=== PATIENT | female | born 1960 | race Caucasian/White ===

== ENCOUNTER → 2016-12-04 10:08 | Outpatient (CLI) | payer MEDICAID ==
[~2016-12-04 10:08] MED LIST: ASPIRIN325 MG PO; ASPIRIN81 MG PO; ATIVAN0.5 MG PO; BAYER CHEWABLE81 MG PO; CELEXA40 MG PO; EFFIENT10 MG; EFFIENT10 MG PO; FAMVIR500 MG PO; HYDROCHLOROTH12.5 M1 PO; HYDROCHLOROTHIA25 MG PO; LISINOPRIL5 MG GT; LISINOPRIL5 MG PO; MINERAL OIL25 ML PO; NEXIUM40 MG PO; NITROQUICK0.4 MG SL; PLAVIX75 MG PO; PRAVACHOL20 MG PO; PRINIVIL20 MG PO; PROZAC20 MG PO; TEGRETOL 100 M100 MG PO; ZOFRAN ODT4 MG/UDTAB PO
== END | disposition home or self-care (01) ==
LOC: D.US 10:08
DX: I70.219 Atherosclerosis of native arteries of extremities with intermittent claudication, unspecified extremity (principal); I25.10 Atherosclerotic heart disease of native coronary artery without angina pectoris

== ENCOUNTER → 2017-01-10 12:45 | Outpatient (CLI) | payer MEDICAID | END | disposition home or self-care (01) | LOC: D.MRI 12:45 | DX: G51.3 Clonic hemifacial spasm (principal) ==

== ENCOUNTER 2017-04-02 17:55 | Emergency (ER) | payer MEDICAID | END 2017-04-02 20:45 | disposition home or self-care (01) | LOC: D.ER 17:55 | DX: M54.16 Radiculopathy, lumbar region (principal); V43.52XA Car driver injured in collision with other type car in traffic accident, initial encounter; Y93.89 Activity, other specified; Y92.410 Unspecified street and highway as the place of occurrence of the external cause; F17.200 Nicotine dependence, unspecified, uncomplicated ==

== ENCOUNTER 2017-09-03 02:33 | Emergency (ER) | payer MEDICAID | END 2017-09-03 03:52 | disposition home or self-care (01) | LOC: D.ER 02:33 | DX: T78.40XA Allergy, unspecified, initial encounter (principal); X58.XXXA Exposure to other specified factors, initial encounter; F17.200 Nicotine dependence, unspecified, uncomplicated ==

== ENCOUNTER → 2017-10-22 12:00 | Outpatient (CLI) | payer MEDICAID | LOC: D.MAMMO 12:00 | DX: N60.02 Solitary cyst of left breast (principal) ==

== ENCOUNTER → 2017-12-31 21:09 | Outpatient (CLI) | payer MEDICAID | END | disposition home or self-care (01) | LOC: D.MAMMO 12-10 14:30 | DX: R92.8 Other abnormal and inconclusive findings on diagnostic imaging of breast (principal) ==

== ENCOUNTER → 2018-04-28 07:15 | Outpatient (CLI) | payer MEDICAID ==
--- NOTE | ~2018-04-28 | ST ---
PATIENT:SAHARA KRAMER MEDICAL RECORD: [id number] SEX: F LOCATION:[facility] ORDER #: ADMISSION DATE: 04/28/18 AGE OF PATIENT: 57 REFERRING PHYSICIAN: INTERPRETING PHYSICIAN: LAMAR NOEL MD DATE OF SERVICE: 04/28/2018 PROCEDURE: Nuclear stress test. INDICATION: Chest pain of unknown etiology. She was exercised on standard Lexiscan protocol with 32.3 mCi sestamibi injected at peak stress, 11.5 mCi injected for rest images previously. FINDINGS: Gated SPECT reveals preserved ejection fraction greater than 60% with good wall motion and thickening and brightening throughout all segments. SPECT imaging: Sestamibi was used as myocardial perfusion agent. There was reversibility anteriorly, this includes the basal, mid apical anterior. The degree of reversibility is mild. The amount of myocardial involved is mild to moderate. OVERALL IMPRESSION: 1. This is an abnormal nuclear stress test with reversible ischemia anteriorly. 2. Gated SPECT reveals a preserved ejection fraction greater than 60%. In this patient with ongoing symptomatology, the current scan does suggest presence of hemodynamically significant coronary artery disease. We will proceed with coronary angiography to followup study. TRANSINT:[id number] Voice Confirmation ID: [id number] DOCUMENT ID: [id number] LAMAR NOEL MD at 1713 CC: [id number] DICTATION DATE: 04/29/18 0859 RIVET MACHINE OPERATOR: 04/29/18 1039 [facility] CLI 04/28/18 [place] [id number]
[~2018-04-28 07:15] MED LIST changes: +LIPITOR40 MG PO
[2018-05-07 05:54] VITALS: BMI 33.1
== END | disposition home or self-care (01) ==
LOC: D.NM 07:15
DX: R06.02 Shortness of breath (principal); I25.10 Atherosclerotic heart disease of native coronary artery without angina pectoris

== ENCOUNTER 2018-05-06 08:59 | Outpatient (CLI) | payer MEDICAID ==
[~2018-05-06] VITALS: Ht 167.6 cm; Wt 93.2 kg
--- NOTE | ~2018-05-06 | HEMODYNAMI ---
PATIENT:SAHARA KRAMER MEDICAL RECORD: [id number] : 58 LOCATION:[facility] D.2122 ADMISSION DATE: 05/06/18 Generatedon:05/07/20189:04 Patient name: SAHARA KRAMER Patient #: [id number] SSN: D OB: 1960 Date of study: 05/07/2018 Page: Of Hemodynamic Procedure Report Patient Data Patient Demographics Procedure consent was obtained First Name: SAHARA Gender: Female Last Name: WILLIAMS : 1960 Patient #: [id number] Age: 57 year(s) Race: Additional ID: [id number] Contact details Address: [address] [place] [address] State: [place] City: [place] Zip code: [address] Past Medical History Allergies Allergen Reaction Date Comments Reported Other allergy 05/07/2018 See Chart Admission Admission Data Admission Date: 05/06/2018 Admission Time: 8:59 Room #: D.2122 Height (in.): 66 BSA: 2.02 (m2) Height (cm.): 167.64 BMI: 33.09 (kg/m2) Weight (lbs.): 205 Weight (kg.): 92.99 Lab Results Lab Result Date: 05/06/2018 Lab Result Time: 0:00 Biochemistry Name Units Result Min Max BUN mg/dl 13 --(--*-)-- 7 18 Creatinine mg/dl 0.7 --(*---)-- 0.6 1.3 CBC Name Units Result Min Max Hemoglobin g/dl 15.2 --(-*--)-- 13.5 17.5 Procedure Procedure Types Cath Procedure Diagnostic Procedure Sedation Charges Moderate Sedation up to 30 minutes PCI Procedure Coronary Stent Coronary Stent Initial Procedure Description Procedure Date Procedure Date: 05/07/2018 Procedure Start Time: 8:33 Procedure End Time: 9:03 Procedure Staff Name Function Maikel Minor MD Performing Physician Santiago Taylor RN Nurse Barry Redd RT Scrub Radha Perez RT Monitor Procedure Data Cath Procedure Fluoroscopy Diagnostic fluoroscopy Total fluoroscopy Time: 13 time: 13 min min Diagnostic fluoroscopy Total fluoroscopy dose: dose: 1095 mGy 1095 mGy Contrast Material Contrast Material Type Amount (ml) Isovue 300 128 Entry Location Entry Primary Successful Side Size Upsize Upsize Entry Closure Succes sful Closure Location (Fr) 1 (Fr) 2 (Fr) Remarks Device Remarks Femoral Right 6 Fr 7 Fr Exoseal artery Short Short Estimated blood loss: 10 ml Procedure Complications No complications Procedure Medications Medication Administration Route Dosage Oxygen etCO2 Nasal cannula 2 l/min Lidocaine 2% added to field 20 Heparin Flush Bag added to field 2 bags (1000units/500ml NS) 0.9% NaCl I.V. 100 ml/hr Versed I.V. 2 mg Fentanyl I.V. 100 mcg Heparin Bolus I.V. 4000 units Nitroglycerin IC/IA I.C. 300 mcg Versed I.V. 1 mg Fentanyl I.V. 50 mcg Versed I.V. 1 mg Versed I.V. 1 mg Fentanyl I.V. 50 mcg Heparin Bolus I.V. 2000 units Versed I.V. 1 mg Effient P.O. 10 mg Hemodynamics Rest BSA: 2.02 (m2) HGB: 15.2 (g/dl) O2 Consumption: Estimated: 175.57 (ml/min) O2 Co nsumption indexed: Estimated:86.92 (ml/min/m) Heart Rate: 48 (bpm) Snapshots Pre Cath Intra NCS Post Cath Vital Signs Time Heart Resp SPO2 etCO2 NIBP (mmHg) Rhythm Pain Sedation Rate (ipm) (%) (mmHg) Status Level (bpm) 8:16:50 45 13 98 0 146/65(103) NSR 0 (11) 10(A) , No pain 8:21:10 45 19 99 34.5 139/68(96) NSR 0 (11) 10(A) , No pain 8:25:28 54 17 94 22.5 115/66(97) NSR 0 (11) 10(A) , No pain 8:29:38 59 17 97 31.5 118/59(82) NSR 0 (11) 10(A) , No pain 8:33:50 53 25 97 32.2 109/58(100) NSR 0 (11) 10(A) , No pain 8:37:58 67 13 95 35.3 123/60(100) NSR 0 (11) 9(A) , No pain 8:42:12 70 14 94 32.3 106/59(83) NSR 0 (11) 9(A) , No pain 8:46:15 66 18 94 34.5 116/70(94) NSR 0 (11) 9(A) , No pain 8:50:23 62 15 96 31.5 119/73(95) NSR 0 (11) 9(A) , No pain 8:54:33 64 21 94 33.8 100/64(89) NSR 0 (11) 9(A) , No pain 8:58:37 62 17 96 30 110/63(81) NSR 0 (11) 10(A) , No pain 9:02:44 72 10 93 36.8 117/60(90) NSR 0 (11) 10(A) , No pain Medications Time Medication Route Dose Verified Delivered Reason Notes Effectiveness by by 8:21:24 Oxygen etCO2 2 Maikel Henderson used for Nasal l/min Mily Taylor RN procedure cannula 8:21:29 Lidocaine 2% added 20ml Maikel Ko for local to vial Mily Minor MD anesthetic field 8:21:35 Heparin Flush added 2 Maikel Maikel used for Bag to bags Mily Minor MD procedure (1000units/500ml field NS) 8:21:42 0.9% NaCl I.V. 100 Maikel Buffie Per physician ml/hr Mily Taylor RN 8:31:47 Versed I.V. 2 mg Maikel Browneie for sedation Mily Taylor RN 8:31:53 Fentanyl I.V. 100 Maikel Buffie for sedation mcg Mily Taylor RN 8:33:54 Heparin Bolus I.V. 4000 Maikel Browneie for verifi ed units Mily Taylor RN anticoagulation with dr minor 8:36:36 Versed I.V. 1 mg Maikel Browneie for sedation Mily Taylor RN 8:36:40 Fentanyl I.V. 50 Maikel Buffie for sedation mcg Mily Taylor RN 8:39:53 Nitroglycerin I.C. 300 Maikel Ko for IC/IA mcg Mily Minor MD vasodilation 8:42:46 Versed I.V. 1 mg Maikel Henderson for sedation Mily Taylor RN 8:50:17 Versed I.V. 1 mg Maikel Henderson for sedation Mily Taylor RN 8:50:20 Fentanyl I.V. 50 Maikel Pavanie for sedation mcg Mily Taylor RN 8:51:23 Heparin Bolus I.V. 2000 Maikel Henderson for verifi ed units Mily Taylor RN anticoagulation with dr minor 8:58:11 Versed I.V. 1 mg Maikel Henderson for sedation Mily Taylor RN 9:01:55 Effient P.O. 10 mg Maikel Henderson for Mily Taylor RN antiplatelet therapy Procedure Log Time Note 7:43:10 Patient Height : 66 inches 7:43:10 Patient Weight : 205 lbs 7:44:48 Orville Caro RT(R) sent for patient. Start room use. 7:44:50 Time tracking: Regular hours (M-F 7:00 - 5:00) 7:44:53 Plan of Care:Hemodynamics will remain stable., Cardiac rhythm will remain stable., Comfort level will be maintained., Respiratory function will remain adequate., Patient/ family verbilizes understanding of procedure., Procedure tolerated without complication., Recovers from procedure without complications.. 8:08:30 Patient received from PCU to CCL 2 Alert and oriented. Tansferred to table in Supine position. 8:08:31 Warm blankets applied, and terry hugger turned on for patient comfort. 8:08:32 Correct patient and procedure confirmed by team. 8:08:33 Signed procedure consent form obtained from patient. 8:15:26 ECG and BP/O2 sat monitors applied to patient. 8:15:30 Vital chart was started 8:16:19 Use device set Femoral Dx 8:16:20 ACIST Syringe (06592) opened to sterile field. 8:16:21 Bag Decanter (2002S) opened to sterile field. 8:16:22 Medline Cath Pack ([id number]) opened to sterile field. 8:16:22 DIAGNOSTIC WIRE .035 260cm J wire (034813) opened to sterile field. 8:16:23 ACIST Hand Control (67949) opened to sterile field. 8:16:24 ACIST Manifold (49129) opened to sterile field. 8:17:37 CHOICE PT Extra Support 182cm wire ([id number]) opened to sterile field. 8:17:39 INFLATOR Merit BasixCompak (OF2831) opened to sterile field. 8:17:40 SHEATH 6Fr Prelude ([id number]) opened to sterile field. 8:17:51 Baseline sample Acquired. 8:17:55 Rhythm: sinus rhythm 8:17:56 Full Disclosure recording started 8:18:05 H&P Date Dictated: 05/06/2018 Within 30 days and on chart.. 8:18:07 Pre-procedure instructions explained to patient. 8:18:09 Family in waiting room. 8:18:11 Patient NPO since Midnight. 8:18:25 Patient allergic to Other allergySee Chart 8:18:52 IV Extension Set opened to sterile field. 8:19:03 Is the patient allergic to Iodine/contrast media? No. 8:19:05 Was the patient premedicated? Yes 8:19:25 Is patient on blood thinner?Yes 8:19:28 ACC The patient was administered the following blood thiners within the last 24 hours: ACCEffient 8:19:32 Patient diabetic? No. 8:19:37 Snore? Yes 8:19:43 Sleep apnea? No 8:19:48 Airway obstruction? No ? 8:19:58 Dentures? Yes in tight 8:20:10 Patient pain scale 0/10 ?. 8:21:01 IV started by Santiago Taylor RN inleft antecubital with a 22 gauge IV catheter with 0.9% NaCl at KVO. 8:21:19 Lab results completed and on chart. 8:21:24 Oxygen 2 l/min etCO2 Nasal cannula was administered by Santiago Taylor RN; used for procedure; 8:21:25 Right groin area was prepped with chlora-prep and draped in sterile fashion 8:21:26 Alarms reviewed by R. N. 8:21:27 Sharps counted by scrub and verified by R.N. 8:21:29 Lidocaine 2% 20ml vial added to field was administered by Maikel Minor MD; for local anesthetic; 8:21:31 Physician paged 8:21:35 Heparin Flush Bag (1000units/500ml NS) 2 bags added to field was administered by Maikel Minor MD; used for procedure; 8:21:42 0.9% NaCl 100 ml/hr I.V. was administered by Santiago Taylor RN; Per physician; 8:30:19 Physician arrived 8:31:10 Zero performed for pressure channel P1 8:31:19 --------ALL STOP TIME OUT------ 8:31:20 Final Timeout: patient, procedure, and site verified with staff and physician. All members of the team are in agreement. 8:31:47 Versed 2 mg I.V. was administered by Santiago Taylor RN; for sedation; 8:31:53 Fentanyl 100 mcg I.V. was administered by Santiago Taylor RN; for sedation; 8:32:58 Right groin site verified by team. 8:33:01 Physical assessment completed. ASA score P 2 - A patient with mild systemic disease as per Maikel Minor MD. 8:33:05 Sedation plan: IV Moderate Sedation Medication:Versed, Fentanyl 8:33:11 Procedure started. 8:33:24 Local anesthetic to right femoral artery with Lidocaine 2% by Maikel Minor MD.INITIAL ACCESS ONLY 8:33:34 A 6 Fr Short sheath was inserted into the Right Femoral artery 8:33:44 6 Fr AR2 guide catheter was inserted over the wire 8:33:54 Heparin Bolus 4000 units I.V. was administered by Santiago Taylor RN; for anticoagulation; verified with dr minor 8:33:57 GUIDE 6FR AR 2.0 catheter ([id number]) opened to sterile field. 8:34:10 choice pt ex wire advanced. 8:34:12 Wire advanced across lesion. 8:36:36 Versed 1 mg I.V. was administered by Santiago Taylor RN; for sedation; 8:36:40 Fentanyl 50 mcg I.V. was administered by Santiago Taylor RN; for sedation; 8:36:52 Place stent Inflation Number: 1 A TARA RX 2.5 x 15 stent ([id number]) was prepped and advanced across the Mid RCA. The stent was deployed at 13 BRENNON for 0:07 (min:sec). 8:37:36 Stent catheter was removed intact over wire. 8:37:36 Wire removed. 8:37:37 Guide catheter removed. 8:39:35 Place stent Inflation Number: 1 A TARA RX 2.5 x 26 stent ([id number]) was prepped and advanced across the Prox RCA. The stent was deployed at 13 BRENNON for 0:40 (min:sec). 8:39:53 Nitroglycerin IC/IA 300 mcg I.C. was administered by Maikel Minor MD; for vasodilation; 8:41:43 CHOICE PT Floppy J 300cm guide wire ([id number]) opened to sterile field. 8:42:05 Floppy wire advanced. 8:42:07 Wire advanced across lesion. 8:42:46 Versed 1 mg I.V. was administered by Santiago Taylor RN; for sedation; 8:43:48 Wire removed. 8:45:08 WHISPER 300cm guide wire ([id number]) opened to sterile field. 8:47:02 Wire removed. unable to cross lesion. 8:48:14 WHISPER 300cm guide wire ([id number]) opened to sterile field. 8:48:15 GUIDE 7FR AR 2.0 SH catheter ([id number]) opened to sterile field. 8:48:17 SHEATH 7FR [place]mu[place] (EPR603) opened to sterile field. 8:49:07 Sheath upsized to a 7 Fr Short. 8:50:17 Versed 1 mg I.V. was administered by Santiago Taylor RN; for sedation; 8:50:20 Fentanyl 50 mcg I.V. was administered by Santiago Taylor RN; for sedation; 8:51:23 Heparin Bolus 2000 units I.V. was administered by Santiago Taylor RN; for anticoagulation; verified with dr minor 8:52:24 Inflate balloon Inflation number: 1 A MAVERICK 2.5 X 9 balloon ([id number]) was prepped and advanced across the Prox RCA1, then inflated to 19 BRENNON for 0:08 (min:sec). 8:52:39 Inflation number: 2 The MAVERICK 2.5 X 9 balloon ([id number]) was reinflated across the Prox RCA1, to 21 BRENNON for 0:08 (min:sec). 8:53:37 Balloon removed over the wire. 8:55:26 GRAPHIX 182cm guide wire ([id number]) opened to sterile field. 8:55:55 Graphix wire advanced. 8:55:56 Wire advanced across lesion. 8:57:01 PERCUTANEOUS ENTRY 19GA needle opened to sterile field. 8:57:23 Inflate balloon Inflation number: 1 A EUPHORA 2.5 x 10 Balloon ([id number]) was prepped and advanced across the Dist RCA, then inflated to 21 BRENNON for 0:06 (min:sec). 8:57:48 Inflation number: 2 The EUPHORA 2.5 x 10 Balloon ([id number]) was reinflated across the Mid RCA, to 19 BRENNON for 0:06 (min:sec). 8:58:06 Inflation number: 2 The EUPHORA 2.5 x 10 Balloon ([id number]) was reinflated across the Prox RCA, to 19 BRENNON for 0:07 (min:sec). 8:58:11 Versed 1 mg I.V. was administered by Santiago Taylor RN; for sedation; 8:58:31 EXOSEAL 7Fr (EX700) opened to sterile field. 8:58:35 Wire advanced across lesion. 8:58:39 Balloon removed over the wire. 8:58:40 Guide catheter removed. 8:59:07 Sheath removed intact; hemostasis achieved with Exoseal to the Right Femoral artery. 8:59:34 Procedure ended.(Physican Out) 9:00:05 Fluoroscopy time 13.00 minutes. 9:00:10 Flurop Dose total: 1095 9:00:10 Fluoroscopy dose: 1095 mGy 9:00:22 Contrast amount:Isovue 300 128ml. 9:00:31 Insertion/operative site no bleeding no hematoma. 9:00:36 Post-op/insertion site Right Femoral artery dressed using a 4 x 4 and Tegaderm. 9:00:45 Post-procedure physical assessment completed. ASA score P 2 - A patient with mild systemic disease as per Maikel Minor MD. 9:00:48 Post procedure rhythm: unchanged. 9:00:52 Estimated blood loss: 10 ml 9:00:53 Post procedure instruction explained to patient.Patient verbalizes understanding. 9:01:10 Procedure type changed to Cath procedure, Diagnostic procedure, Sedation Charges, Moderate Sedation up to 30 minutes, PCI procedure, Coronary Stent, Coronary Stent Initial 9:01:12 Procedure and supply charges have been captured, reviewed, submitted and are correct. 9:01:55 Effient 10 mg P.O. was administered by Santiago Taylor RN; for antiplatelet therapy; 9:03:03 Procedure Complication : No complications 9:03:06 Vital chart was stopped 9:03:07 See physician's report for complete and final results. 9:03:09 Report given to Pre/Post Procedure Room. 9:03:43 Patient transfered to Pre/Post Procedure Room with Stretcher. 9:03:45 Procedure ended. 9:03:45 Full Disclosure recording stopped 9:03:50 End room use (Document Last) Intervention Summary Intervention Notes Time ActionType Lesion and Equipment Used Action# Pressure Duration Attributes 8:36:52 Place stent Mid RCA TARA RX 2.5 x 1 13 00:07 15 stent ([id number]) 8:39:35 Place stent Prox RCA TARA RX 2.5 x 1 13 00:40 26 stent ([id number]) 8:52:24 Inflate Prox RCA1 MAVERICK 2.5 X 1 19 00:08 balloon 9 balloon ([id number]) 8:52:39 Reinflate Prox RCA1 MAVERICK 2.5 X 2 21 00:08 balloon 9 balloon ([id number]) 8:57:23 Inflate Dist RCA EUPHORA 2.5 x 1 21 00:06 balloon 10 Balloon ([id number]) 8:57:48 Reinflate Mid RCA EUPHORA 2.5 x 2 19 00:06 balloon 10 Balloon ([id number]) 8:58:06 Reinflate Prox RCA EUPHORA 2.5 x 2 19 00:07 balloon 10 Balloon ([id number]) Device Usage Item Name Manufacture Quantity Catalog Number Hospital Part Current Minimal Lot# / Charge Number Stock Stock Serial# Code ACIST Syringe Acist 1 38505 091567 617392 445344 20 (36155) Medical Systems Inc Bag Decanter Microtek 1 574242 80006 769897 5 () Medical Inc. Medline Cath Cardinal 1 [id number] 244962 45080 002658 5 [facility] Innovatus Technology ([id number]) DIAGNOSTIC St Robbin 1 281538 012814 123620 479387 30 WIRE .035 260cm J wire (979534) ACIST Hand Acist 1 32446 664014 613907 906974 5 Control Medical (21250) Systems Inc ACIST Manifold Acist 1 17619 448780 399378 916478 5 (89535) Medical Systems Inc CHOICE PT [place] 1 [id number] 590655 355451 406863 5 Extra Support Scientific 182cm wire (3456204H4) INFLATOR Merit Merit 1 LE5859 872616 962247 393695 15 BasixCompak Medical (JJ7000) SHEATH 6Fr Merit 1 [id number] 118705 934979 677354 5 Prelude Medical ([id number]) IV Extension Hospira 1 49679-84 088811 49827 063454 5 Set GUIDE 6FR AR Medtronic 1 [id number] 818102 53952 029916 1 2.0 catheter (DO6PO38) TARA RX 2.5 x Medtronic 1 [id number] 650885 1742429 096191 5 [id number] 15 stent ([id number]) TARA RX 2.5 x Medtronic 1 [id number] 684695 8185494 998775 5 [id number] 26 stent ([id number]) CHOICE PT [place] 1 [id number] 573627 411171 471818 5 Floppy J 300cm Scientific guide wire (7867734U6) WHISPER 300cm Mckeon 2 [id number] 914676 318815 514810 5 guide wire Vascular (0462103PP) GUIDE 7FR AR Medtronic 1 [id number] 116945 809830 486779 0 2.0 SH catheter ([id number]) SHEATH 7FR Terumo 1 EZO215 305564 793091 169122 5 [place] (EVG893) MAVERICK 2.5 X [place] 1 [id number] 220058 056603 184785 1 [id number] 9 balloon Scientific ([id number]) GRAPHIX 182cm [place] 1 [id number] 547326 793437 791314 5 guide wire Scientific (6770053G2) PERCUTANEOUS Cook Medical 1 Z14503 808243 590830 5 ENTRY 19GA needle EUPHORA 2.5 x Medtronic 1 [id number] 060675 115794 836711 5 [id number] 10 Balloon ([id number]) EXOSEAL 7Fr Cardinal 1 EX700 342413 943633 452609 5 (EX700) Health Signature Audit [place] Stage Time Signature Unsigned Intra-Procedure 05/07/2018 Radha Perez 9:04:42 AM RT(R) Signatures Monitor : Radha Perez Signature : RT Date : Time : [address] [address]
--- NOTE | ~2018-05-06 | OP ---
PATIENT NAME: SAHARA KRAMER MEDICAL RECORD: [id number] :58 [facility] AD[facility] DATE: SURGEON: LAMAR NOEL MD DATE OF OPERATION: 05/06/2018 PROCEDURES: 1. PTCA stent LAD diagonal. 2. Left heart catheterization. 3. Selective coronary angiography. 4. MELENDREZ angiography. 5. Left ventriculogram. INDICATION: Angina and coronary artery disease. PROCEDURE IN DETAIL: After informed consent was obtained and after a detailed description of risks, benefits as well as alternative therapies, the patient elected to proceed with angiogram and angioplasty. The right radial area was prepped and draped in normal sterile fashion. Right radial artery was cannulated via modified Seldinger technique with placement of 6-Nauruan sheath. All catheters exchanged through this sheath. FINDINGS: Left ventriculogram was performed in standard 30-degree GARCIA view, reveals good cardiac wall motion throughout all segments. Overall ejection fraction estimated 60%. SELECTIVE CORONARY ANGIOGRAPHY: 1. Left main is with no significant angiographic disease. 2. Left anterior descending has a diagonal that takes off prior to the total occlusion of the left anterior descending. The diagonal has previously placed stent with 95% in-stent restenosis. The left anterior descending is then totally occluded; however, the MELENDREZ to the LAD is widely patent. Distal LAD is widely patent. 3. The left circumflex has moderate irregularities, but no flow-limiting stenosis. 4. Right coronary has 2 areas of 70% to 80% stenosis. PTCA STENT OF THE LAD DIAGONAL: The stent used 2.5 x 15 mm Slick. Result was 0% residual stenosis. OVERALL IMPRESSION: Successful PTCA stent of the left anterior descending diagonal going from 95% initial stenosis to 0% residual. PLAN: PTCA stent of the RCA in the near future. TRANSINT:[id number] Voice Confirmation ID: [id number] DOCUMENT ID: [id number] LAMAR NOEL MD at 1208 CC: [id number] DICTATION DATE: 05/06/18 1207 COOKEE: 05/06/18 1355 REG [facility] [address] [place] [address]
--- NOTE | ~2018-05-06 | OP ---
PATIENT NAME: SAHARA KRAMER MEDICAL RECORD: [id number] :58 [facility] DATE: SURGEON: LAMAR NOEL MD DATE OF OPERATION: 05/07/2018 PROCEDURES: 1. PTCA stent RCA. 2. Selective coronary angiography. INDICATION: Angina and coronary artery disease. PROCEDURE PERFORMED: After informed consent was obtained and after detailed explanation of risks, benefits as well as alternative therapies, the patient elected to proceed with angiogram and angioplasty. The right femoral area was prepped and draped in normal sterile fashion. Right femoral artery was cannulated via modified Seldinger technique with placement of 7-Comoran sheath. All catheters exchanged through this sheath. FINDINGS: The right coronary has two areas of 70% to 80% stenosis, this was addressed with a 2.5 x 15 and 2.5 x 26, both Slick stents. Result was 0% residual stenosis. OVERALL IMPRESSION: Successful percutaneous transluminal coronary angioplasty stent of the right coronary artery going from 70% to 80% initial stenosis to 0% residual. TRANSINT:[id number] Voice Confirmation ID: [id number] DOCUMENT ID: [id number] LAMAR NOEL MD at 1208 CC: [id number] DICTATION DATE: 05/07/18 09 INCIDENT RESPONSE ENGINEER: 05/07/18 1130 REG [place] [id number] [place] [id number]
--- NOTE | ~2018-05-06 | DS ---
PATIENT:SAHARA MONTILLA :58 MEDICAL RECORD: [id number] DISCHARGE SUMMARY ADMISSION DATE: 05/06/18 DISCHARGE DATE: 05/07/18 DISCHARGE DIAGNOSES: 1. Angina. 2. Coronary artery disease. 3. Percutaneous transluminal coronary angioplasty stent right coronary artery and left anterior descending diagonal this admission. 4. Hypertension. 5. Hyperlipidemia. HOSPITAL COURSE: Mrs. Montilla presents with unstable anginal symptomatology, found to have 2-vessel disease of the LAD, diagonal as well as the RCA, underwent successful PTCA stent of above territories. She was discharged home with the addition of Effient to her medical regimen. We will follow up with [facility] in 1 month. TRANSINT:[id number] Voice Confirmation ID: [id number] DOCUMENT ID: [id number] LAMAR NOEL MD at 1752 CC: [id number] DICTATION DATE: 05/07/18900 FIRING PIN GAUGER: 05/07/181911 DEP CLI 05/07/18 [facility] [address] [place] [address]
--- NOTE | ~2018-05-06 | HEMODYNAMI ---
PATIENT:SAHARA KRAMER MEDICAL RECORD: [id number] : 58 LOCATION:[facility] ADMISSION DATE: 05/06/18 Generatedon:05/06/201812:07 Patient name: SAHARA KRAMER Patient #: [id number] SSN: D OB: 1960 Date of study: 05/06/2018 Page: Of Hemodynamic Procedure Report Patient Data Patient Demographics Procedure consent was obtained First Name: SAHARA Gender: Female Last Name: WILLIAMS : 1960 Patient #: [id number] Age: 57 year(s) Race: Additional ID: [id number] Contact details Address: [address] [place] [address] State: [place] City: [place] Zip code: [address] Admission Admission Data Admission Date: 05/06/2018 Admission Time: 8:59 Height (in.): 66 BSA: 2.02 (m2) Height (cm.): 167.64 BMI: 33.09 (kg/m2) Weight (lbs.): 205 Weight (kg.): 92.99 Lab Results Lab Result Date: 05/06/2018 Lab Result Time: 0:00 Biochemistry Name Units Result Min Max BUN mg/dl 13 --(--*-)-- 7 18 Creatinine mg/dl 0.7 --(*---)-- 0.6 1.3 CBC Name Units Result Min Max Hemoglobin g/dl 15.2 --(-*--)-- 13.5 17.5 Procedure Procedure Types Cath Procedure Diagnostic Procedure LHC LHC w/Coronaries w/Grafts PCI Procedure Coronary Stent Coronary Stent Initial Procedure Description Procedure Date Procedure Date: 05/06/2018 Procedure Start Time: 11:41 Procedure End Time: 12:06 Procedure Staff Name Function Maikel Minor MD Performing Physician Orville Caro RT Monitor Fito Lyons RT Scrub Raghu Dunaway RN Nurse Procedure Data Cath Procedure Fluoroscopy Diagnostic fluoroscopy Total fluoroscopy Time: 6.9 time: 6.9 min min Diagnostic fluoroscopy Total fluoroscopy dose: 297 dose: 297 mGy mGy Contrast Material Contrast Material Type Amount (ml) Isovue 300 107 Entry Location Entry Primary Successful Side Size Upsize Upsize Entry Closure Bustillo ccessful Closure Location (Fr) 1 (Fr) 2 (Fr) Remarks Device Remarks Radial Right 6 Fr Manual artery Short Compression Estimated blood loss: 10 ml Diagnostic catheters Device Type Used For End Catheter Placement DIAGNOSTIC [place] 110cm 5 Procedure Fr catheter ([id number]) DIAGNOSTIC AR 1 MOD 5Fr Procedure catheter ([id number]) Procedure Complications No complications Procedure Medications Medication Administration Route Dosage 0.9% NaCl I.V. 100 ml/hr Oxygen etCO2 Nasal cannula 2 l/min Heparin Flush Bag added to field 2 bags (1000units/500ml NS) Lidocaine 2% added to field 20 Radial Cocktail added to field 1 syringe (Verapomil 2mg/Nitro 400mcg/Heparin 1500units) Versed I.V. 2 mg Fentanyl I.V. 100 mcg Versed I.V. 1 mg Radial Cocktail I.A. 1 syringe (Verapomil 2mg/Nitro 400mcg/Heparin 1500units) Heparin Bolus 4000 units Integrilin (Bolus I.V. 8.5 ml 2mg/ml) Integrilin (Bolus wasted 1.5 ml 2mg/ml) Versed I.V. 1 mg Effient P.O. 60 mg Hemodynamics Rest BSA: 2.02 (m2) HGB: 15.2 (g/dl) O2 Consumption: Estimated: 184.22 (ml/min) O2 Co nsumption indexed: Estimated:91.2 (ml/min/m) Heart Rate: 59 (bpm) Pressure Samples Time Site Value (mmHg) Purpose Heart Use Rate(bpm) 11:44 AO 103/70(86) Snapshot 73 Snapshots Pre Cath Intra NCS Post Cath Vital Signs Time Heart Resp SPO2 etCO2 NIBP (mmHg) Rhythm Pain Sedation Rate (ipm) (%) (mmHg) Status Level (bpm) 11:30:03 55 20 98 39.8 107/53(76) NSR 0 (11) 10(A) , No pain 11:34:23 61 18 92 40.5 103/47(71) NSR 0 (11) 10(A) , No pain 11:38:41 61 19 95 39.8 102/57(73) NSR 0 (11) 10(A) , No pain 11:42:59 56 18 96 43.6 100/62(82) NSR 0 (11) 10(A) , No pain 11:47:19 69 14 91 40.6 104/49(86) NSR 0 (11) 9(A) , No pain 11:51:42 69 14 95 42.1 98/48(76) NSR 0 (11) 9(A) , No pain 11:55:58 64 16 94 41.3 98/57(74) NSR 0 (11) 9(A) , No pain 12:00:16 62 13 95 30.8 104/50(82) NSR 0 (11) 10(A) , No pain 12:05:43 59 12 98 24.8 139/67(106) NSR 0 (11) 10(A) , No pain Medications Time Medication Route Dose Verified Delivered Reason Not es Effectiveness by by 11:31:12 0.9% NaCl I.V. 100 Raghu Raghu Per physician ml/hr Gume Dunaway RN RN 11:31:22 Oxygen etCO2 2 l/min Raghu Raghu Per physician Nasal Gume Dunaway cannula RN RN 11:31:34 Heparin Flush added 2 bags Raghu Raghu used for Bag to Lorkenny Dunaway procedure (1000units/500ml RN RN NS) 11:31:45 Lidocaine 2% added 20ml Raghu Raghu for local to vial Lorigan Gume anesthetic RN RN 11:31:58 Radial Cocktail added 1 Raghu Raghu used for (Verapomil to syringe Lorigan Lorigan procedure 2mg/Nitro RN RN 400mcg/Heparin 1500units) 11:39:24 Versed I.V. 2 mg Raghu Raghu for sedation Gume Dunaway RN RN 11:39:34 Fentanyl I.V. 100 mcg Raghu Raghu for sedation Gume Dunaway RN RN 11:43:11 Versed I.V. 1 mg Raghu Raghu for sedation Gume Dunaway RN RN 11:43:23 Radial Cocktail I.A. 1 Raghu Maikel for (Verapomil syringe Gume Minor MD vasodilation 2mg/Nitro RN 400mcg/Heparin 1500units) 11:51:09 Heparin Bolus 4000 Raghu Raghu for units Lorigan Lorkenny anticoagulation RN RN 11:51:30 Integrilin I.V. 8.5 ml Raghu Raghu for (Bolus 2mg/ml) Gume Dunaway antiplatelet RN RN therapy 11:51:42 Integrilin wasted 1.5 ml Raghu Raghu to sharp's (Bolus 2mg/ml) Gume Dunaway RN RN 11:53:17 Versed I.V. 1 mg Raghu Raghu for sedation Gume Dunaway RN, RN 12:04:29 Effient P.O. 60 mg Raghu Raghu for Gume Dunaway antiplatelet RN RN therapy Procedure Log Time Note 11:00:50 Orville Caro RT(R) sent for patient. Start room use. 11:13:27 Informed consent obtained and on chart 11:14:01 Diagnostic Cath Status : Elective 11:14:59 Time tracking: Regular hours (M-F 7:00 - 5:00) 11:15:05 Plan of Care:Hemodynamics will remain stable., Cardiac rhythm will remain stable., Comfort level will be maintained., Respiratory function will remain adequate., Patient/ family verbilizes understanding of procedure., Procedure tolerated without complication., Recovers from procedure without complications.. 11:15:13 Patient received from Pre/Post Procedure Room to CCL 3 Alert and oriented. Tansferred to table in Supine position. 11:15:15 Warm blankets applied, and terry hugger turned on for patient comfort. 11:15:16 Correct patient and procedure confirmed by team. 11:28:38 ECG and BP/O2 sat monitors applied to patient. 11:28:38 Vital chart was started 11:28:39 Baseline sample Acquired. 11:28:44 Rhythm: sinus bradycardia 11:28:51 Full Disclosure recording started 11:29:22 H&P Date Dictated: 04/14/2018 Within 30 days and on chart., H&P Addendum completed by physician on day of procedure. (MUST COMPLETE FOR ALL OUTPATIENTS). 11:29:23 Pre-procedure instructions explained to patient. 11:29:23 Pre-op teaching completed and patient verbalized understanding. 11:29:25 Family in patients room. 11:29:26 Patient NPO since Midnight. 11:29:28 Is the patient allergic to Iodine/contrast media? No. 11:29:33 Is patient on blood thinner?No 11:29:34 Patient diabetic? No. 11:29:39 Previous problem with sedation/anesthesia? No ? 11:29:40 Snore? Yes 11:29:41 Sleep apnea? No 11:29:42 Deviated septum? No 11:29:43 Opens mouth fully? Yes 11:29:44 Sticks out tongue? Yes 11:29:47 Airway obstruction? No ? 11:30:07 Dentures? Yes IN 11:30:16 Pre procedure: right dorsailis pedis pulse 1+ Palpable, but thready & weak; easily obliterated 11:30:18 Modified Artem's test Ulnar < 7 seconds 11:30:21 Patient pain scale 0/10 ?. 11:30:27 IV patent on arrival in left forearm with 0.9% NaCl at [facility]. 11:30:29 Lab results completed and on chart. 11:30:33 Right Radial & Right Groin area was prepped with chlora-prep and draped in sterile fashion 11:30:34 Alarms reviewed by R. N. 11:30:35 Sharps counted by scrub and verified by R.N. 11:31:12 0.9% NaCl 100 ml/hr I.V. was administered by Raghu Dunaway RN; Per physician; 11:31:22 Oxygen 2 l/min etCO2 Nasal cannula was administered by Raghu Dunaway RN; Per physician; 11:31:34 Heparin Flush Bag (1000units/500ml NS) 2 bags added to field was administered by Raghu Dunaway RN; used for procedure; 11:31:45 Lidocaine 2% 20ml vial added to field was administered by Raghu Dunaway RN; for local anesthetic; 11:31:58 Radial Cocktail (Verapomil 2mg/Nitro 400mcg/Heparin 1500units) 1 syringe added to field was administered by Raghu Dunaway RN; used for procedure; 11:33:04 Use device set Radial Dx or PCI 11:33:06 Tegaderm 4 x 4 ([id number]) opened to sterile field. 11:33:08 ACIST Hand Control (48580) opened to sterile field. 11:33:08 ACIST Manifold (71741) opened to sterile field. 11:33:09 ACIST Syringe (94760) opened to sterile field. 11:33:10 Medline Cath Pack ([id number]) opened to sterile field. 11:33:10 Bag Decanter () opened to sterile field. 11:33:11 DIAGNOSTIC WIRE .035 260cm J wire (933720) opened to sterile field. 11:33:12 MBrace Wrist Support ([id number]) opened to sterile field. 11:33:14 SHEATH 6Fr Prelude Radial ([id number]) opened to sterile field. 11:33:50 Patient Height : 66 inches 11:33:51 Patient Weight : 205 lbs 11:34:11 Lab Result : Creatinine 0.7 mg/dl 11:34:11 Lab Result : BUN 13 mg/dl 11:34:11 Lab Result : Hemoglobin 15.2 g/dl 11:38:44 --------ALL STOP TIME OUT------ :38:44 Final Timeout: patient, procedure, and site verified with staff and physician. All members of the team are in agreement. 11:38:48 Right Radial & Right Groin site verified by team. 11:38:51 Physical assessment completed. ASA score P 2 - A patient with mild systemic disease as per Maikel Minor MD. 11:38:54 Sedation plan: IV Moderate Sedation Medication:Versed, Fentanyl 11:39:24 Versed 2 mg I.V. was administered by Raghu Dunaway RN; for sedation; 11:39:34 Fentanyl 100 mcg I.V. was administered by Raghu Dunaway RN; for sedation; 11:41:49 Procedure started. 11:41:53 Local anesthetic to right radial artery with Lidocaine 2% by Maikel Minor MD.INITIAL ACCESS ONLY 11:42:40 A 6 Fr Short sheath was inserted into the Right Radial artery 11:43:11 Versed 1 mg I.V. was administered by Raghu Dunaway RN; for sedation; 11:43:23 Radial Cocktail (Verapomil 2mg/Nitro 400mcg/Heparin 1500units) 1 syringe I.A. was administered by Maikel Minor MD; for vasodilation; 11:43:56 A DIAGNOSTIC [place] 110cm 5 Fr catheter (706167) was advanced over the wire and used for Procedure. 11:44:40 MELENDREZ to LAD angiography performed. 11:45:17 LCA angiography performed. 11:45:21 Use device set [facility] PCI 11:46:01 Catheter exchanged over wire. 11:46:21 A DIAGNOSTIC [place] 1 MOD 5Fr catheter ([id number]) was advanced over the wire and used for Procedure. 11:46:27 INFLATOR Merit BasixCompak (UX5298) opened to sterile field. 11:46:31 CHOICE PT Extra Support 182cm wire ([id number]) opened to sterile field. 11:47:35 RCA angiography performed. 11:48:59 LV angiography performed. 11:49:00 LV gram done using GARCIA 11:49:32 EF : 55 % 11:49:35 Injector settings: Ml/sec: 5, Volume: 10, 11:49:37 Catheter exchanged over wire. 11:50:23 No Charge 6fr XBC 3 opened to the field. 11:50:33 6 Fr XBC 3 guide catheter was inserted over the wire 11:51:09 Heparin Bolus 4000 units was administered by Raghu Dunaway RN; for anticoagulation; 11:51:30 Integrilin (Bolus 2mg/ml) 8.5 ml I.V. was administered by Raghu Dunaway RN; for antiplatelet therapy; 11:51:42 Integrilin (Bolus 2mg/ml) 1.5 ml wasted was administered by Raghu Dunaway RN; to sharp's; 11:52:00 Guide Catheter removed. unable to cannulate vessel. 11:52:07 GUIDE 6FR EBU 3.5 catheter ([id number]) opened to sterile field. 11:52:15 6 Fr EBU 3.5 guide catheter was inserted over the wire 11:53:17 Versed 1 mg I.V. was administered by Raghu Dunaway RN; for sedation; 11:53:48 Choice PT XS wire advanced. 11:54:18 Wire advanced across lesion. 11:57:25 The TARA RX 2.5 x 15 stent ([id number]) was advanced then removed because of failure to cross lesion 11:57:42 Inflate balloon Inflation number: 1 A EUPHORA 2.0 x 15 Balloon ([id number]) was prepped and advanced across the 1st Diag, then inflated to 17 BRENNON for 0:10 (min:sec). 11:57:48 Balloon removed over the wire. 11:58:45 Place stent Inflation Number: 2 A TARA RX 2.5 x 15 stent ([id number]) was prepped and advanced across the 1st Diag. The stent was deployed at 15 BRENNON for 0:10 (min:sec). 11:59:42 Stent catheter was removed intact over wire. 11:59:46 Wire removed. 11:59:48 Guide catheter removed. 11:59:52 TR BAND Standard ([id number]) opened to sterile field. 12:00:04 Sheath removed intact; hemostasis achieved with Manual Compression to the Right Radial artery. 12:00:16 Procedure ended.(Physican Out) 12:04:29 Effient 60 mg P.O. was administered by Raghu Dunaway RN; for antiplatelet therapy; 12:04:33 Fluoroscopy time 06.90 minutes. 12:04:37 Fluoroscopy dose: 297 mGy 12:04:37 Flurop Dose total: 297 12:04:41 Contrast amount:Isovue 300 107ml. 12:04:42 Sharps counted by scrub and verified by R.N. 12:04:45 TR band inflated with 14cc of air. 12:04:48 Insertion/operative site no bleeding no hematoma. 12:04:50 Post Procedure Pulses reassessed and unchanged 12:04:53 Post-procedure physical assessment completed. ASA score P 2 - A patient with mild systemic disease as per Maikel Minor MD. 12:04:55 Post procedure rhythm: unchanged. 12:04:58 Estimated blood loss: 10 ml 12:05:00 Post procedure instruction explained to patient.Patient verbalizes understanding. 12:05:00 Patient needs reinforcement of post procedure teaching. 12:05:13 Procedure type changed to Cath procedure, Diagnostic procedure, LHC, LHC w/Coronaries w/Grafts, PCI procedure, Coronary Stent, Coronary Stent Initial 12:05:16 Procedure and supply charges have been captured, reviewed, submitted and are correct. 12:05:18 Procedure Complication : No complications 12:06:25 Vital chart was stopped 12:06:26 See physician's report for complete and final results. 12:06:37 Report given to Pre/Post Procedure Room. 12:06:40 Patient transfered to Pre/Post Procedure Room with Stretcher. 12:06:48 Procedure ended. 12:06:48 Full Disclosure recording stopped 12:06:58 End room use (Document Last) Intervention Summary Intervention Notes Time ActionType Lesion and Equipment Used Action# Pressure Duration Attributes 11:57:25 Discard TARA RX 2.5 x Stent 15 stent ([id number]) 11:57:42 Inflate 1st Diag EUPHORA 2.0 x 1 17 00:10 balloon 15 Balloon ([id number]) 11:58:45 Place stent 1st Diag TARA RX 2.5 x 2 15 00:10 15 stent ([id number]) Device Usage Item Name Manufacture Quantity Catalog Number Hospital Part Current Minimal Lot# / Charge Number Stock Stock Serial# Code Tegaderm 4 x 4 3M 1 [id number] [id number] 5 (1626W) ACIST Hand Acist 1 18228 396292 347171 484189 5 Control (32033) [employer] Inc ACIST Manifold Acist 1 14637 989582 538036 160576 5 (56642) [employer] Inc ACIST Syringe Acist 1 88306 702787 930000 819809 20 (65280) Medical Systems Inc Medline Cath Cardinal 1 [id number] 856471 94091 298417 5 Pack Adhezion Biomedical ([id number]) Bag Decanter Microtek 1 2001S 045279 94094 423500 5 (2001S) Medical Inc. DIAGNOSTIC WIRE [facility] [place] 1 771313 405078 833284 617700 30 .035 260cm J wire (395807) MBrace Wrist Advanced 1 140-0250-00 946299 95623 329006 5 Support Vascular ([id number]) Dynamics SHEATH 6Fr Merit 1 [id number] 919077 529418 671446 5 Prelude Radial Medical ([id number]) DIAGNOSTIC Terumo 1 40-5321 727532 102485 363180 5 [place] 110cm 5 Fr catheter (709513) DIAGNOSTIC AR 1 Cardinal 1 [id number] 736452 175261 030780 15 MOD 5Fr Health catheter ([id number]) INFLATOR Merit Merit 1 BE6590 471921 809161 509742 15 [employer] Medical (KR5017) CHOICE PT Extra [place] 1 [id number] 179121 439416 377117 5 Support 182cm Scientific wire ([id number]) GUIDE 6FR EBU Medtronic 1 [id number] 564887 71932 484369 3 3.5 catheter (BU6IIM63) TARA RX 2.5 x Medtronic 1 [id number] 392881 1435711 020250 5 [id number] 15 stent ([id number]) EUPHORA 2.0 x Medtronic 1 [id number] 058831 309810 870339 5 [id number] 15 Balloon ([id number]) TR BAND Terumo 1 [id number] 464827 781586 486901 40 Standard ([id number]) Signature Audit [place] Stage Time Signature Unsigned Intra-Procedure 05/06/2018 Orville Caro 12:07:37 PM RT(R) Signatures Monitor : Orville Caro RT Signature : Date : Time : [id number] [place] [address]
[~2018-05-06 08:59] MED LIST changes: -LIPITOR40 MG PO
[2018-05-06] MEDS ORDERED: LIPITOR40 MG PO (09:17)
[2018-05-06 09:27] VITALS: BP 146/79; BMI 33.1
[2018-05-06 09:34] LABS: BASOPHILS 0.4 % (0-2); EOSINOPHILS 1.6 % (0-7); HEMOGLOBIN 15.2 g/dL (12-16); IMMATURE GRANULOCYTES 0.2 % (0-5); LYMPHOCYTES 29.1 % (15-50); MCH 28.4 pg (26.0-34.0); MCHC 33.8 g/dL (31.0-37.0); MCV 84.1 fL (80.0-100.0); MEAN PLATELET VOLUME 10.4 fL (7.4-10.4); MONOCYTES 7.4 % (2-11); NEUTROPHILS 61.3 % (40-80); PLATELET COUNT 366 10x3/uL (130-400); RBC 5.35 10x6/uL (4.00-5.40); RDW 13.7 % (11.5-14.5); WBC 8.2 10x3/uL (4.8-10.8)
[2018-05-06 09:52] LABS: CALC OSMOLALITY 281 mosm/kg (275-300); CALCIUM 9.4 mg/dL (8.5-10.1); CHLORIDE - SERUM 105 mmol/L (98-107); CREATININE - SERUM 0.7 mg/dL (0.6-1.3); GLUCOSE 117 mg/dL (74-106); SODIUM 141 mmol/L (136-145); UREA NITROGEN 13 mg/dL (7-18); eGFR NON AFRICAN AMERICAN > 90 mL/min (90-120)
[2018-05-06] MEDS ORDERED: PLAVIX75 MG PO (12:24)
[2018-05-06] MEDS ORDERED: EFFIENT10 MG PO (12:26)
[2018-05-06 20:00] VITALS: BP 106/64; BP 121/67
[2018-05-07 05:54] VITALS: BP 121/67; Ht 167.6 cm; Wt 93.2 kg
[2018-05-07 06:11] VITALS: BP 104/54
[2018-05-07 08:27] VITALS: BP 119/68
== END 2018-05-07 13:20 | disposition home or self-care (01) ==
LOC: D.CATH 08:59 → D.M2 19:30 → D.CLR 05-07 09:51 → D.CATH 05-07 13:20
PROVIDERS: Internal Medicine Interventional Cardiology
DX: I25.110 Atherosclerotic heart disease of native coronary artery with unstable angina pectoris (principal)

== ENCOUNTER → 2018-11-13 10:24 | Outpatient (CLI) | payer MEDICAID ==
[2018-05-07 05:54] VITALS: BMI 33.1
[~2018-11-13 10:24] MED LIST changes: +LIPITOR40 MG PO
--- NOTE | 2018-11-16 11:46 | ST ---
PATIENT:SAHARA KRAMER MEDICAL RECORD: [id number] SEX: F LOCATION:[facility] ORDER #: ADMISSION DATE: 11/13/18 AGE OF PATIENT: 58 REFERRING PHYSICIAN: INTERPRETING PHYSICIAN: LAMAR NOEL MD DATE OF SERVICE: 11/13/2018 PROCEDURE: Nuclear stress test. INDICATIONS: Angina, coronary artery disease, shortness of breath. She was exercised on standard Lexiscan protocol with 32 mCi of sestamibi injected at peak stress, 11 mCi used previously for rest images. FINDINGS: Gated SPECT reveals a preserved ejection fraction at 62% with good wall motioning and thickening and brightening throughout all segments. SPECT imaging: Cardiolite was used as myocardial perfusion agent. There is definite reversibility anteriorly and apically. This includes the basal, mid, apical, anterior segments as well as the apex itself. The degree of reversibility is moderate. The amount of myocardium involved is moderate. OVERALL IMPRESSION: 1. This is an abnormal nuclear stress test. Reversible ischemia anteroapically. 2. Gated SPECT reveals preserved ejection fraction of greater than 60%. In this patient with ongoing symptomatology, the current scan does suggest the presence of hemodynamically significant coronary artery disease. We will proceed with coronary angiography as a followup study. TRANSINT:[id number] Voice Confirmation ID: [id number] DOCUMENT ID: [id number] LAMAR NOEL MD at 1146 CC: [id number] DICTATION DATE: 11/13/18 1342 ENGLISH TUTOR: 11/14/18 0840 DEP CLI 11/13/18 [place] [id number]
== END | disposition home or self-care (01) ==
LOC: D.HCCARDIO 10:24
DX: I25.10 Atherosclerotic heart disease of native coronary artery without angina pectoris (principal)

== ENCOUNTER 2018-11-20 08:14 | Outpatient (CLI) | payer MEDICAID ==
[~2018-11-20] VITALS: Ht 167.6 cm; Wt 97.3 kg
[2018-11-20] VITALS (18 sets, daily range): BP systolic 95–150; BP diastolic 39–77; Ht 167.6 cm; Wt 97.3 kg
--- NOTE | ~2018-11-20 | HEMODYNAMI ---
PATIENT:SAAHRA KRAMER MEDICAL RECORD: [id number] : 58 LOCATION:[facility] ADMISSION DATE: 11/20/18 Generatedon:11/20/201810:55 Patient name: SAHARA KRAMER Patient #: [id number] SSN: D OB: 1960 Date of study: 11/20/2018 Page: Of Hemodynamic Procedure Report Patient Data Patient Demographics Procedure consent was obtained First Name: SAHARA Gender: Female Last Name: WILLIAMS : 1960 Patient #: [id number] Age: 58 year(s) Race: Additional ID: [id number] Contact details [address]: [address] [place] [address] State: [place] City: [place] Zip code: [address] Past Medical History Allergies Allergen Reaction Date Comments Reported Other allergy 05/07/2018 See Chart Admission Admission Data Admission Date: 11/20/2018 Admission Time: 8:14 Admit Source: Other Procedure Procedure Types Cath Procedure Diagnostic Procedure LHC LHC w/Coronaries w/Grafts FFR/IVUS Intra-Coronary IVUS Initial PCI Procedure Coronary Stent Coronary Stent Initial Procedure Description Procedure Date Procedure Date: 11/20/2018 Procedure Start Time: 10:26 Procedure End Time: 10:51 Procedure Staff Name Function Mariajose Bedolla RT Scrub Bairon Mtz RN Felter Tennis Balls Maikel Minor MD Performing Physician Edward Montes De Oca RT Monitor Loyda Peralta RN Nurse Procedure Data Cath Procedure Fluoroscopy Diagnostic fluoroscopy Total fluoroscopy Time: 5.5 time: 5.5 min min Diagnostic fluoroscopy Total fluoroscopy dose: dose: 289.97 mGy 289.97 mGy Contrast Material Contrast Material Type Amount (ml) Isovue 300 97 Entry Location Entry Primary Successful Side Size Upsize Upsize Entry Closure Bustillo ccessful Closure Location (Fr) 1 (Fr) 2 (Fr) Remarks Device Remarks Radial Right 6 Fr Mechanical artery Short Compression Diagnostic catheters Device Type Used For End Catheter Placement DIAGNOSTIC [place] 110cm 5 Fr catheter ([id number]) Procedure Complications No complications Procedure Medications Medication Administration Route Dosage 0.9% NaCl I.V. 100 ml/hr Oxygen etCO2 Nasal cannula 2 l/min Lidocaine 2% added to field 20 Heparin Flush Bag added to field 2 bags (1000units/500ml NS) Radial Cocktail added to field 1 syringe (Verapomil 2mg/Nitro 400mcg/Heparin 1500units) Versed 2 mg Fentanyl I.V. 50 mcg Versed 2 mg Fentanyl I.V. 50 mcg Heparin Bolus I.V. 4000 units Integrilin (Bolus I.V. 8.5 ml 2mg/ml) Effient P.O. 60 mg Hemodynamics Rest Heart Rate: 53 (bpm) Snapshots Pre Cath Intra NCS Post Cath Vital Signs Time Heart Resp SPO2 etCO2 NIBP (mmHg) Rhythm Pain Sedation Rate (ipm) (%) (mmHg) Status Level (bpm) 10:01:28 55 15 97 33.8 134/81(108) SB 0 (11) 10(A) , No pain 10:06:01 56 11 98 39.8 130/73(95) SB 0 (11) 10(A) , No pain 10:10:33 55 12 96 42.1 117/65(91) SB 0 (11) 10(A) , No pain 10:14:57 54 11 96 42.1 124/69(83) SB 0 (11) 10(A) , No pain 10:19:22 56 10 96 39.8 109/61(84) SB 0 (11) 10(A) , No pain 10:23:46 58 13 98 41.4 109/61(79) SB 0 (11) 10(A) , No pain 10:28:04 64 10 99 39.1 106/55(73) NSR 0 (11) 10(A) , No pain 10:32:24 61 12 98 42.9 112/57(80) NSR 0 (11) 9(A) , No pain 10:36:38 57 10 99 43.6 114/61(91) NSR 0 (11) 9(A) , No pain 10:40:54 57 14 97 42.1 110/64(89) NSR 0 (11) 10(A) , No pain 10:46:09 56 12 98 34.6 112/69(98) NSR 0 (11) 10(A) , No pain 10:50:09 32.3 No Cuff NSR 0 (11) 10(A) , No pain Medications Time Medication Route Dose Verified Delivered Reason Not es Effectiveness by by 10:06:26 0.9% NaCl I.V. 100 Maikel Loyda used for ml/hr Mily Peralta derrick man 10:06:38 Oxygen etCO2 2 l/min Maikel Loyda used for Nasal Mily Peralta procedure cannula RN 10:06:44 Lidocaine 2% added 20ml Maikel Maikel for local to vial Mily Minor MD anesthetic field 10:06:49 Heparin Flush added 2 bags Maikel Maikel used for Bag to Mily Minor MD procedure (1000units/500ml field NS) 10:06:54 Radial Cocktail added 1 Maikel Maikel used for (Verapomil to syringe Mily Minor MD procedure 2mg/Nitro field 400mcg/Hepari 10:25:29 Fentanyl I.V. 50 mcg Maikel Loyda for sedation Mily Peralta RN 10:25:36 Versed 2 mg Maikel Loyda for sedation Mily Peralta RN 10:29:30 Versed 2 mg Maikel Loyda for sedation Mily Peralta RN 10:29:39 Fentanyl I.V. 50 mcg Maikel Loyda for sedation Mily Peralta RN 10:39:00 Integrilin I.V. 8.5 ml Maikel Loyda for was amaris (Bolus 2mg/ml) Mily Peralta anticoagulation 1.5mL RN 10:39:33 Heparin Bolus I.V. 4000 Maikel Loyda for cassandra ified units Mily Peralta anticoagulation with Dr. ELLE Minor 10:45:20 Effient P.O. 60 mg Maikel Loyda for Mily Peralta antiplatelet RN therapy Procedure Log Time Note 9:49:01 Admit Source: Other 9:49:31 Diagnostic Cath status Elective 9:49:33 Bairon Mtz RN sent for patient. Start room use. 9:49:39 Time tracking: Regular hours (M-F 7:00 - 5:00) 9:49:44 Plan of Care:Hemodynamics will remain stable., Cardiac rhythm will remain stable., Comfort level will be maintained., Respiratory function will remain adequate., Patient/ family verbilizes understanding of procedure., Procedure tolerated without complication., Recovers from procedure without complications.. 10:00:10 Vital chart was started 10:04:11 Patient received from Pre/Post Procedure Room to CCL 3 Alert and oriented. Tansferred to table in Supine position. 10:04:13 Warm blankets applied, and terry hugger turned on for patient comfort. 10:04:14 Correct patient and procedure confirmed by team. 10:04:20 Signed procedure consent form obtained from patient. 10:04:23 ECG and BP/O2 sat monitors applied to patient. 10:04:26 Baseline sample Acquired. 10:04:45 Rhythm: sinus rhythm 10:05:23 H&P Date Dictated: 11/04/2018 Within 30 days and on chart.. 10:05:26 Pre-procedure instructions explained to patient. 10:05:28 Pre-op teaching completed and patient verbalized understanding. 10:05:35 Family in patients room. 10:05:39 Patient NPO since Midnight. 10:05:45 Is the patient allergic to Iodine/contrast media? No. 10:05:51 Is patient on blood thinner?No 10:05:56 Patient diabetic? No. 10:06:14 Patient not . Patient is over age 55. 10:06:17 HCG/Urine : completed and on chart 10:06:26 0.9% NaCl 100 ml/hr I.V. was administered by Loyda Peralta RN; used for procedure; 10:06:27 HCG/Urine : not drawn 10:06:37 Previous problem with sedation/anesthesia? No ? 10:06:38 Oxygen 2 l/min etCO2 Nasal cannula was administered by Loyda Peralta RN; used for procedure; 10:06:40 Snore? Yes 10:06:43 Sleep apnea? No 10:06:44 Lidocaine 2% 20ml vial added to field was administered by Maikel Minor MD; for local anesthetic; 10:06:45 Deviated septum? No 10:06:47 Opens mouth fully? Yes 10:06:48 Sticks out tongue? Yes 10:06:49 Heparin Flush Bag (1000units/500ml NS) 2 bags added to field was administered by Maikel Minor MD; used for procedure; 10:06:52 Airway obstruction? No ? 10:06:54 Radial Cocktail (Verapomil 2mg/Nitro 400mcg/Heparin 1500units) 1 syringe added to field was administered by Maikel Minor MD; used for procedure; 10:06:58 Dentures? No ? 10:07:39 Pre procedure: right radial pulse 2+ Normal; easily identifiable; not easily obliterated 10:07:51 Pre procedure: right dorsailis pedis pulse 1+ Palpable, but thready & weak; easily obliterated 10:24:24 Modified Artem's test Ulnar < 7 seconds 10:24:28 Patient pain scale 0/10 ?. 10:24:36 IV patent on arrival in left antecubital with 0.9% NaCl at 10ml/hr. 10:24:40 Lab results completed and on chart. 10:24:43 Right Radial & Right Groin area was prepped with chlora-prep and draped in sterile fashion 10:24:44 Sharps counted by scrub and verified by R.N. 10:24:44 Alarms reviewed by R. N. 10:24:46 --------ALL STOP TIME OUT------ 10:24:46 Physician arrived 10:24:47 Final Timeout: patient, procedure, and site verified with staff and physician. All members of the team are in agreement. 10:24:49 Right Radial & Right Groin site verified by team. 10:24:53 Fire Safety Assessment: A--An alcohol-based skin anteseptic being used preoperatively., C--Open oxygen or nitrous oxide is being used., D--An ESU, laser, or fiber-optic light is being used. 10:24:56 Physical assessment completed. ASA score P 2 - A patient with mild systemic disease as per Maikel Minor MD. 10:24:59 Sedation plan: IV Moderate Sedation Medication:Versed, Fentanyl 10:25:10 Use device set Radial Dx or PCI 10:25:11 Medline Cath Pack ([id number]) opened to sterile field. 10:25:11 ACIST Syringe (37111) opened to sterile field. 10:25:12 ACIST Hand Control (74722) opened to sterile field. 10:25:12 DIAGNOSTIC WIRE .035 260cm J wire (716054) opened to sterile field. 10:25:12 Bag Decanter () opened to sterile field. 10:25:13 Tegaderm 4 x 4 (1626W) opened to sterile field. 10:25:13 ACIST Manifold (10341) opened to sterile field. 10:25:14 MBrace Wrist Support ([id number]) opened to sterile field. 10:25:15 TR BAND Standard ([id number]) opened to sterile field. 10:25:16 SHEATH 6FR Slender (801060) opened to sterile field. 10:25:20 Full Disclosure recording started 10:25:20 Procedure started. 10:25:29 Fentanyl 50 mcg I.V. was administered by Loyda Peralta RN; for sedation; 10:25:36 Versed 2 mg was administered by Loyda Peralta RN; for sedation; 10::30 Local anesthetic to right radial artery with Lidocaine 2% by Maikel Minor MD.INITIAL ACCESS ONLY 10:27:32 A 6 Fr Short sheath was inserted into the Right Radial artery 10:27:42 Zero performed for pressure channel P1 10:28:21 A DIAGNOSTIC [place] 110cm 5 Fr catheter (733047) was advanced over the wire and used for . 10:28:28 LV angiography performed. 10:28:33 LV gram done using GARCIA 10:28:37 EF : 55 % 10:28:44 RCA angiography performed. 10:29:30 Versed 2 mg was administered by Loyda Peralta RN; for sedation; 10:29:36 GUIDE 6FR EBU 3.0 catheter ([id number]) opened to sterile field. 10:29:39 Fentanyl 50 mcg I.V. was administered by Loyda Peralta RN; for sedation; 10:30:13 MELENDREZ to LAD angiography performed. 10:30:17 Catheter removed. 10:30:26 6 Fr EBU 3 guide catheter was inserted over the wire 10:31:00 LCA angiography performed. 10:31:59 INFLATOR Merit BasixCompak (QP9475) opened to sterile field. 10:32:00 CHOICE PT Extra Support 182cm wire ([id number]) opened to sterile field. 10:32:24 [place] IVUS Catheter (33253E) opened to sterile field. 10:32:32 CPTES wire advanced. 10:34:40 Wire removed. 10:34:47 Catheter removed. unable to cannulate vessel. 10:34:55 GUIDE 6FR XBLAD 3.5 catheter (59227855) opened to sterile field. 10:35:07 6 Fr XBLAD 3.5 guide catheter was inserted over the wire 10:35:13 CPTES wire advanced. 10:35:20 IVUS catheter advanced over wire. 10:35:20 FFR/IVUS 10:35:32 IVUS pass to Circ lesion performed. 10:37:33 IVUS catheter removed over wire. 10:37:48 Procedure type changed to Cath procedure, Diagnostic procedure, LHC, LHC w/Coronaries w/Grafts, FFR/IVUS, Intra-Coronary IVUS Initial, PCI procedure, Coronary Stent, Coronary Stent Initial 10:39:00 Integrilin (Bolus 2mg/ml) 8.5 ml I.V. was administered by Loyda Peralta RN; for anticoagulation; wasted 1.5mL 10:39:33 Heparin Bolus 4000 units I.V. was administered by Loyda Peralta RN; for anticoagulation; verified with Dr. Minor 10:41:09 IVUS DANIEL. 65.4% PER DR MINOR 10:42:11 Inflate balloon Inflation number: 1 A INTEGRITY RX 3.5 x 15 stent ([id number]) was prepped and advanced across the Prox CX, then inflated to 15 BRENNON for 0:10 (min:sec). 10:42:27 Stent catheter was removed intact over wire. 10:42:28 Wire removed. 10:42:31 Guide catheter removed. 10:42:48 Contrast amount:Isovue 300 97ml. 10:43:12 Sheath removed intact; hemostasis achieved with Mechanical Compression to the Right Radial artery. 10:43:14 Procedure ended.(Physican Out) 10:43:46 Fluoroscopy time 05.50 minutes. 10:43:55 Fluoroscopy dose: 289.97 mGy 10:43:55 Flurop Dose total: 289.97 10:43:56 Sharps counted by scrub and verified by R.N. 10:43:59 TR band inflated with 10cc of air. 10:45:20 Effient 60 mg P.O. was administered by Loyda Peralta RN; for antiplatelet therapy; 10:48:11 Post-op/insertion site Right Radial artery dressed using a 4 x 4 and Tegaderm. 10:48:17 Post right radial artery:stable 10:48:19 Post Procedure Pulses reassessed and unchanged 10:48:23 Post procedure: right radial pulse 2+ Normal; easily identifiable; not easily obliterated. 10:48:26 Post procedure rhythm: sinus rhythm 10:48:28 Post procedure instruction explained to patient.Patient verbalizes understanding. 10:48:29 Procedure and supply charges have been captured, reviewed, submitted and are correct. 10:49:31 Procedure Complication : No complications 10:51:04 Vital chart was stopped 10:51:05 See physician's report for complete and final results. 10:51:07 Report given to Pre/Post Procedure Room. 10:51:10 Patient transfered to Pre/Post Procedure Room with Stretcher. 10:51:12 Full Disclosure recording stopped 10:51:12 Procedure ended. 10:51:15 End room use (Document Last) Intervention Summary Intervention Notes Time ActionType Lesion and Equipment Action# Pressure Duration Attributes Used 10:42:11 Inflate Prox CX INTEGRITY RX 1 15 00:10 balloon 3.5 x 15 stent ([id number]) Device Usage Item Name Manufacture Quantity Catalog Number Hospital Part Current Mini mal Lot# / Charge Number Stock Stock Serial# Code ACIST Acist 1 96392 642629 228446 515609 20 Syringe Medical (77207) Systems Inc Medline Cath Medline 1 [id number] 053422 46005 962406 5 Pack ([id number]) Bag Decanter Microtek 1 2001S 487619 93055 337192 5 (2001S) Medical Inc. DIAGNOSTIC [facility] [place] 1 610551 466345 377754 911909 30 WIRE .035 260cm J wire (845663) ACIST Hand Acist 1 82643 509440 061047 781920 5 Control Medical (96688) Systems Inc ACIST Acist 1 84205 811027 981341 861331 5 Manifold Medical (59130) Systems Inc Tegaderm 4 x 3M 1 1626W 510700 085294 754744 5 4 (1626W) MBrace Wrist Advanced 1 140-0250-00 033427 17338 998662 5 Support Vascular ([id number]) Dynamics TR BAND Terumo 1 [id number] 161472 266911 286025 40 Standard ([id number]) SHEATH 6FR Terumo 1 [id number] 850006 000720 212175 5 Slender (801060) DIAGNOSTIC Terumo 1 40-1144 151034 516216 335002 5 [place] 110cm 5 Fr catheter (045178) GUIDE 6FR Medtronic 1 [id number] 164163 20362 826996 0 EBU 3.0 catheter ([id number]) INFLATOR [facility] 1 AA8239 777236 936282 646994 15 [facility] Medical BasixCompak (SF5403) CHOICE PT [place] 1 [id number] 625619 769112 689451 5 Extra Scientific Support 182cm wire ([id number]) [place] 1 21748Q 763382 710706 089757 8 [place] IVUS Catheter (54505K) GUIDE 6FR Cardinal 1 [id number] 570149 667282 028764 10 XBLAD 3.5 Health catheter (55124837) INTEGRITY RX Medtronic 1 [id number] 637057 740470 804480 5 [id number] 3.5 x 15 stent ([id number]) Signature Audit [place] Stage Time Signature Unsigned Intra-Procedure 11/20/2018 Edward Bustilloit RT(R) Edward Suit RT(R) 10:52:56 AM 11/20/2018 10:54:33 AM Intra-Procedure 11/20/2018 Edward Suit RT(R) 10:55:04 AM Signatures Monitor : Edward Montes De Oca RT Signature : Date : Time : [facility] [address] [place] [address]
--- NOTE | ~2018-11-20 | HEMODYNAMI ---
PATIENT:SAHARA KRAMER MEDICAL RECORD: [id number] : 58 LOCATION:[facility] ADMISSION DATE: 11/20/18 Generatedon:11/20/201811:34 Patient name: SAHARA KRAMER Patient #: [id number] SSN: D OB: 1960 Date of study: 11/20/2018 Page: Of Hemodynamic Procedure Report Patient Data Patient Demographics Procedure consent was obtained First Name: SAHARA Gender: Female Last Name: WILLIAMS : 1960 Patient #: [id number] Age: 58 year(s) Race: Additional ID: [id number] Contact details [address]: [address] [place] [address] State: [place] City: [place] Zip code: [address] Past Medical History Allergies Allergen Reaction Date Comments Reported Other allergy 05/07/2018 See Chart Admission Admission Data Admission Date: 11/20/2018 Admission Time: 8:14 Admit Source: Other Procedure Procedure Types Cath Procedure Diagnostic Procedure LHC Coronaries only PCI Procedure Coronary Stent Coronary Stent Initial Procedure Description Procedure Date Procedure Date: 11/20/2018 Procedure Start Time: 11:16 Procedure End Time: 11:34 Procedure Staff Name Function Maikel Minor MD Performing Physician Edward Montes De Oca RT Monitor Barry Redd RT Scrub Santiago Taylor RN Nurse Loyda Peralta RN Warp Hauler Radha Mathis RT Monitor Procedure Data Cath Procedure Fluoroscopy Diagnostic fluoroscopy Total fluoroscopy Time: 4.3 time: 4.3 min min Diagnostic fluoroscopy Total fluoroscopy dose: 608 dose: 608 mGy mGy Contrast Material Contrast Material Type Amount (ml) Isovue 300 58 Entry Location Entry Primary Successful Side Size Upsize Upsize Entry Closure Succes sful Closure Location (Fr) 1 (Fr) 2 (Fr) Remarks Device Remarks Femoral Right 6 Fr Exoseal artery Short Estimated blood loss: 10 ml Procedure Complications No complications Procedure Medications Medication Administration Route Dosage 0.9% NaCl I.V. 100 ml/hr Oxygen etCO2 Nasal cannula 2 l/min Heparin Bolus I.V. 4000 units Lidocaine 2% added to field 20 Heparin Flush Bag added to field 2 bags (1000units/500ml NS) Versed I.V. 1 mg Fentanyl I.V. 50 mcg Integrilin (Bolus I.V. 8.5 ml 2mg/ml) Nitroglycerin IC/IA I.C. 200 mcg Hemodynamics Rest Heart Rate: 50 (bpm) Snapshots Pre Cath Intra NCS Post Cath Vital Signs Time Heart Resp SPO2 etCO2 NIBP (mmHg) Rhythm Pain Sedation Rate (ipm) (%) (mmHg) Status Level (bpm) 11:12:38 49 8 95 27.8 163/76(127) NSR 8 (11) , 10(A) Utterly horrible 11:16:58 53 15 97 36.1 157/81(111) NSR 8 (11) , 10(A) Utterly horrible 11:21:18 60 15 98 34.6 153/82(107) NSR 6 (11) , 10(A) Intense 11:25:32 65 19 92 32.4 129/79(99) NSR 0 (11) , 10(A) No pain 11:29:51 61 16 91 32.4 135/57(98) NSR 0 (11) , 10(A) No pain Medications Time Medication Route Dose Verified Delivered Reason Notes Effectiveness by by 11:14:47 0.9% NaCl I.V. 100 Maikel Loyda used for ml/hr Mily Peralta drier operator helper 11:14:56 Oxygen etCO2 2 Maikel Loyda used for Nasal l/min Mily Peralta procedure cannula RN 11:16:37 Heparin Bolus I.V. 4000 Maikel Loyda for units Mily Peralta anticoagulation RN 11:18:25 Lidocaine 2% added 20ml Maikel Ko for local to vial Mily Minor MD anesthetic field 11:18:29 Heparin Flush added 2 Maikel Maikel used for Bag to bags Mily Minor MD procedure (1000units/500ml field NS) 11:18:35 Versed I.V. 1 mg Maikel Loyda for sedation Mily Peralta RN 11:18:40 Integrilin I.V. 8.5 Maikel Loyda for waste d (Bolus 2mg/ml) ml Mily Peralta anticoagulation 1.5mL RN 11:18:40 Fentanyl I.V. 50 Maikel Scales for sedation gallo Peralta RN 11:24:44 Nitroglycerin I.C. 200 Maikel Ko for IC/IA gallo Minor MD vasodilation Procedure Log Time Note 11:09:21 PATIENT BROUGHT BACK TO LAB AFTER PROCEDURE DUE TO ST ELEVATION 11:10:54 Diagnostic Cath status Emergency 11:10:56 Edward Suit RT(R) sent for patient. Start room use. 11:10:57 Time tracking: Regular hours (M-F 7:00 - 5:00) 11:11:01 Plan of Care:Hemodynamics will remain stable., Cardiac rhythm will remain stable., Comfort level will be maintained., Respiratory function will remain adequate., Patient/ family verbilizes understanding of procedure., Procedure tolerated without complication., Recovers from procedure without complications.. 11:11:09 Patient received from Pre/Post Procedure Room to CCL 2 Alert and oriented. Tansferred to table in Supine position. 11:11:10 Warm blankets applied, and terry hugger turned on for patient comfort. 11:11:10 Correct patient and procedure confirmed by team. 11:11:11 Signed procedure consent form obtained from patient. 11:11:12 ECG and BP/O2 sat monitors applied to patient. 11:11:13 Vital chart was started 11:11:35 Full Disclosure recording started 11:11:38 Rhythm: sinus rhythm , w/ ST elevation 11:12:40 Pre-procedure instructions explained to patient. 11:12:41 Pre-op teaching completed and patient verbalized understanding. 11:12:48 Family in patients room. 11:12:51 Patient NPO since Midnight. 11:13:16 SEE PREVIOUS HEMO REPORT FOR PRE ASSESSMENT 11:13:25 Pre procedure: right dorsailis pedis pulse 2+ Normal; easily identifiable; not easily obliterated 11:13:37 Patient pain scale 8/10 CHEST. 11:13:47 IV patent on arrival in left forearm with 0.9% NaCl at O. 11:13:49 Lab results completed and on chart. 11:13:53 Right groin area was prepped with chlora-prep and draped in sterile fashion 11:13:54 Alarms reviewed by R. N. 11:13:54 Sharps counted by scrub and verified by R.N. 11:13:57 Final Timeout: patient, procedure, and site verified with staff and physician. All members of the team are in agreement. 11:13:58 Right groin site verified by team. 11:14:02 Fire Safety Assessment: A--An alcohol-based skin anteseptic being used preoperatively., C--Open oxygen or nitrous oxide is being used., D--An ESU, laser, or fiber-optic light is being used. 11:14:05 Physical assessment completed. ASA score P 3 - A patient with severe systemic disease as per Maikel Minor MD. 11:14:08 Sedation plan: IV Moderate Sedation Medication:Versed, Fentanyl 11:14:24 Use device set Femoral Dx 11:14:30 SHEATH 6FR [place] (NTN485) opened to sterile field. 11:14:36 Use device set TAUTH PCI 11:14:40 ACIST Syringe (27232) opened to sterile field. 11:14:40 Bag Decanter (2002S) opened to sterile field. 11:14:41 Medline Cath Pack ([id number]) opened to sterile field. 11:14:41 DIAGNOSTIC WIRE .035 260cm J wire (074472) opened to sterile field. 11:14:43 ACIST Hand Control (52341) opened to sterile field. 11:14:44 ACIST Manifold (43960) opened to sterile field. 11:14:47 0.9% NaCl 100 ml/hr I.V. was administered by Loyda Peralta RN; used for procedure; 11:14:50 CHOICE PT Extra Support 182cm wire ([id number]) opened to sterile field. 11:14:56 Oxygen 2 l/min etCO2 Nasal cannula was administered by Loyda Peralta RN; used for procedure; 11:15:07 GUIDE 6FR XBC 3.5 ([id number]) opened to sterile field. 11:16:02 Procedure started. 11:16:14 Local anesthetic to right femoral artery with Lidocaine 2% by Maikel Minor MD.INITIAL ACCESS ONLY 11:16:34 A 6 Fr Short sheath was inserted into the Right Femoral artery 11:16:37 Heparin Bolus 4000 units I.V. was administered by Loyda Peralta RN; for anticoagulation; 11:16:45 6 Fr XBLAD 3.5 guide catheter was inserted over the wire 11:17:16 Baseline sample Acquired. 11:18:25 Lidocaine 2% 20ml vial added to field was administered by Maikel Minro MD; for local anesthetic; 11:18:29 Heparin Flush Bag (1000units/500ml NS) 2 bags added to field was administered by Maikel Minor MD; used for procedure; 11:18:35 Versed 1 mg I.V. was administered by Loyda Peralta RN; for sedation; 11:18:36 CHOICE PT ES wire advanced. 11:18:40 Integrilin (Bolus 2mg/ml) 8.5 ml I.V. was administered by Loyda Peralta RN; for anticoagulation; wasted 1.5mL 11:18:40 Fentanyl 50 mcg I.V. was administered by Loyda Peralta RN; for sedation; 11:19:36 Inflate balloon Inflation number: 1 A EUPHORA 3.0 x 20 Balloon ([id number]) was prepped and advanced across the Mid CX, then inflated to 7 BRENNON for 0:06 (min:sec). 11:19:47 Inflation number: 2 The EUPHORA 3.0 x 20 Balloon ([id number]) was reinflated across the Mid CX, to 9 BRENNON for 0:08 (min:sec). 11:19:58 Inflation number: 3 The EUPHORA 3.0 x 20 Balloon ([id number]) was reinflated across the Mid CX, to 15 BRENNON for 0:07 (min:sec). 11:20:29 Inflation number: 4 The EUPHORA 3.0 x 20 Balloon ([id number]) was reinflated across the Mid CX, to 11 BRENNON for 0:10 (min:sec). 11:21:21 Inflation number: 5 The EUPHORA 3.0 x 20 Balloon ([id number]) was reinflated across the Mid CX, to 19 BRENNON for 0:07 (min:sec). 11:22:14 Balloon removed over the wire. 11:23:35 Place stent Inflation Number: 6 A INTEGRITY RX 3.5 x 12 stent ([id number]) was prepped and advanced across the Mid CX. The stent was deployed at 11 BRENNON for 0:04 (min:sec). 11:23:52 Stent catheter was removed intact over wire. 11:24:44 Nitroglycerin IC/IA 200 mcg I.C. was administered by Maikel Minor MD; for vasodilation; 11::39 Place stent Inflation Number: 7 A INTEGRITY RX 3.0 x 22 stent ([id number]) was prepped and advanced across the Mid CX. The stent was deployed at 13 BRENNON for 0:07 (min:sec). 11:25:59 Stent catheter was removed intact over wire. 11:26:02 Wire removed. 11:26:03 Guide catheter removed. 11::24 Sheath removed intact; hemostasis achieved with Exoseal to the Right Femoral artery. 11:26:27 Procedure ended.(Physican Out) 11::54 Fluoroscopy time 04.30 minutes. 11::58 Fluoroscopy dose: 608 mGy 11::58 Flurop Dose total: 608 11:27:02 Contrast amount:Isovue 300 58ml. 11:27:04 Sharps counted by scrub and verified by R.N. 11:27:23 Insertion/operative site no bleeding no hematoma. 11:27:35 Post-op/insertion site Right Femoral artery dressed using a 4 x 4 and Tegaderm. 11:27:39 Post right femoral artery:stable, clean and dry 11:27:43 EXOSEAL 6Fr (EX600) opened to sterile field. 11:27:45 Tegaderm 4 x 4 (1626W) opened to sterile field. 11:28:23 Procedure type changed to Cath procedure, Diagnostic procedure, LHC, Coronaries only, PCI procedure, Coronary Stent, Coronary Stent Initial 11:28:30 Post Procedure Pulses reassessed and unchanged 11::34 Post-procedure physical assessment completed. ASA score P 2 - A patient with mild systemic disease as per Maikel Minor MD. 11:28:38 Post procedure rhythm: sinus rhythm 11::41 Estimated blood loss: 10 ml 11::42 Post procedure instruction explained to patient.Patient verbalizes understanding. 11::42 Patient needs reinforcement of post procedure teaching. 11:28:46 Procedure Complication : No complications 11:28:51 See physician's report for complete and final results. 11:30:31 Procedure and supply charges have been captured, reviewed, submitted and are correct. 11:33:13 Post right femoral artery:bleeding 11:33:21 Femstop placed over the right femoral artery at 160 mmHg. Hemostasis achieved. 11:33:30 FEMSTOP Gold (K84443) opened to sterile field. 11:33:54 Vital chart was stopped 11:33:57 Report given to CVICU. 11:34:11 Patient transfered to CVICU with Bed. 11:34:13 Procedure ended. 11:34:13 Full Disclosure recording stopped 11:34:18 End room use (Document Last) Intervention Summary Intervention Notes Time ActionType Lesion and Equipment Action# Pressure Duration Attributes Used 11:19:36 Inflate Mid CX EUPHORA 3.0 1 7 00:06 balloon x 20 Balloon ([id number]) 11:19:47 Reinflate Mid CX EUPHORA 3.0 2 9 00:08 balloon x 20 Balloon ([id number]) 11:19:58 Reinflate Mid CX EUPHORA 3.0 3 15 00:08 balloon x 20 Balloon ([id number]) 11:20:29 Reinflate Mid CX EUPHORA 3.0 4 11 00:10 balloon x 20 Balloon ([id number]) 11:21:21 Reinflate Mid CX EUPHORA 3.0 5 19 00:08 balloon x 20 Balloon ([id number]) 11:23:35 Place stent Mid CX INTEGRITY RX 6 11 00:05 3.5 x 12 stent ([id number]) 11:25:39 Place stent Mid CX INTEGRITY RX 7 13 00:07 3.0 x 22 stent ([id number]) Device Usage Item Name Manufacture Quantity Catalog Number [facility] Part Current [facility] Lot# / Charge Number Stock Stock Serial# Code SHEATH 6FR Terumo 1 [id number] 330592 622767 208106 40 [place] ([id number]) ACIST Acist 1 48874 068822 873451 147173 20 Syringe Medical (08428) Systems Inc Bag Decanter Microtek 1 2001S 552975 54428 358704 5 () Medical Inc. Medline Cath Medline 1 [id number] 213152 89139 490154 5 Pack ([id number]) DIAGNOSTIC St Robbin 1 216247 665382 134788 401610 30 WIRE .035 260cm J wire (644302) ACIST Hand Acist 1 97792 451105 791590 781195 5 Control Medical (68365) Systems Inc ACIST Acist 1 81488 228089 658802 495163 5 [facility] Medical (90390) Systems Inc CHOICE PT [place] 1 [id number] 001805 664329 636279 5 Extra Scientific Support 182cm wire ([id number]) GUIDE 6FR Cardinal 1 [id number] 956360 23662 817674 5 XBC 3.5 Health (53340003) EUPHORA 3.0 Medtronic 1 [id number] 362694 787818 203085 5 [id number] x 20 Balloon ([id number]) INTEGRITY RX Medtronic 1 [id number] 541763 913142 485227 5 [id number] 3.5 x 12 stent ([id number]) INTEGRITY RX Medtronic 1 [id number] 425456 291027 761402 5 [id number] 3.0 x 22 stent ([id number]) EXOSEAL 6Fr Cardinal 1 EX600 363641 397541 381127 10 (EX600) Health Tegaderm 4 x 3M 1 1626W 249176 828124 189143 5 4 (1626W) FEMSTOP Gold St Robbin 1 [id number] 471964 201636 446013 5 ([id number]) Signature Audit [place] Stage Time Signature Unsigned Intra-Procedure 11/20/2018 Radha 11:34:37 AM Counts RT(R) Signatures Monitor : Edward Montes De Oca RT Signature : Date : Time : Monitor : Radha Signature : Counts RT Date : Time : [facility] [address] [place] [address]
[2018-11-20 08:57] LABS: BASOPHILS 0.4 % (0-2); EOSINOPHILS 2.2 % (0-7); HEMATOCRIT 41.9 % (36.0-48.0); IMMATURE GRANULOCYTES 0.1 % (0-5); LYMPHOCYTES 28.6 % (15-50); MCH 28.1 pg (26.0-34.0); MCHC 33.4 g/dL (31.0-37.0); MEAN PLATELET VOLUME 10.3 fL (7.4-10.4); MONOCYTES 7.6 % (2-11); NEUTROPHILS 61.1 % (40-80); PLATELET COUNT 341 10x3/uL (130-400); RBC 4.99 10x6/uL (4.00-5.40); RDW 14.1 % (11.5-14.5); WBC 6.9 10x3/uL (4.8-10.8)
[2018-11-20 09:06] LABS: CALC OSMOLALITY 284 mosm/kg (275-300); CALCIUM 8.8 mg/dL (8.5-10.1); CARBON DIOXIDE 25.9 mmol/L (21.0-32.0); CHLORIDE - SERUM 106 mmol/L (98-107); CREATININE - SERUM 0.7 mg/dL (0.6-1.3); GLUCOSE 110 mg/dL (74-106); POTASSIUM - SERUM 3.9 mmol/L (3.5-5.1); SODIUM 142 mmol/L (136-145); UREA NITROGEN 14 mg/dL (7-18); eGFR NON AFRICAN AMERICAN > 90 mL/min (90-120)
[2018-11-20] MEDS ORDERED: ASPIRIN81 MG PO (10:58)
--- NOTE | 2018-11-20 11:45 | NUR ---
REC'D TO ROOM CVICU 07. CONNECTED TO MONITOR. VS OBTAINED. AROUSES TO VERBAL STIMULI. IV L FOREARM NS @ 100CC/HR. SEE FLOWSHEET FOR ASSESSMENT.
--- NOTE | 2018-11-20 12:15 | NUR ---
1106 RECEIVED PT TO ROOM FROM OLEOMARGARINE MAKER. PT C/O SEVERE CHEST PAIN, OLEOMARGARINE MAKER STAFF REMAIN WITH PT, EKG OBTAINED AND ST ELEVATION NOTED. DR NOEL NOTIFIED AND PT IMMEDIATELY TAKEN BACK TO OLEOMARGARINE MAKER BY OLEOMARGARINE MAKER STAFF.
--- NOTE | 2018-11-20 13:00 | NUR ---
FEM STOP REMOVED FROM R GROIN. NO BLEEDING NOTED. NO HEMATOMA NOTED
--- NOTE | 2018-11-20 14:51 | NUR ---
1440: R RADIAL BAND REMOVED. SITE DRESSED WITH 2X2 AND SECURED WITH TAPE.
--- NOTE | 2018-11-20 16:48 | NUR ---
DISCUSSED CARDIAC REHAB OUTPATIENT WITH PATIENT AND DAUGHTER. WILL SET PATIENT UP FOR OUTPATIENT CARDIAC REHAB IN TWO WEEKS APPROXIMATE DATE WOULD BE November OR 2018 TO BEGIN CARDIAC REHAB. THANK YOU FOR YOU REFERRAL
--- NOTE | 2018-11-20 16:58 | NUR ---
1650: IV SALINE LOCKED. UP TO BATHROOM. VOIDED WITHOUT DIFFICULTY.
--- NOTE | 2018-11-20 21:00 | NUR ---
1900 REPORT RECEIVED CARE ASSUMED. ASSESSMENT DONE SEE FLOW SHEET. VSS. NO SIGNS OF ACUTE DISTRESS NOTED. WILL CONTINUE TO MONITOR. 2100 WATER PROVIDED PER PT REQUEST. NO DIFFICULTIES NOTED WILL CONTINUE TO MONITOR. VSS.
--- NOTE | 2018-11-20 22:57 | NUR ---
REASSESSMENT DONE SEE FLOW SHEET. VSS. NO SIGNS OF ACUTE DISTRESS NOTED WILL CONTINUE TO MONITOR.
[2018-11-21] VITALS (9 sets, daily range): BP systolic 112–140; BP diastolic 49–75
--- NOTE | 2018-11-21 01:00 | NUR ---
WATER PROVIDED PER PT REQUEST.
--- NOTE | 2018-11-21 02:56 | NUR ---
REASSESSMENT COMPLETE VSS. NO SIGNS OF ACUTE DISTRESS NOTED WILL CONTINUE TO MONITOR.
--- NOTE | 2018-11-21 05:10 | NUR ---
PT UP TO CHAIR MINIMAL ASSISTANCE PROVIDED. WARM TOWELS PROVIDED FOR PERSONAL HYGENE. BEDDING STRIPPED. WATER PROVIDED PER PT REQUEST. WILL CONTINUE TO [facility].
--- NOTE | 2018-11-21 06:36 | NUR ---
PT INCREASING UNCOMFORTABLE IN CHAIR. AMBULATED WITH MINIMAL ASSISTANCE BACK TO BED. LINENS CHANGED. VSS WILL CONITNUE TO MONITOR.
--- NOTE | 2018-11-21 09:30 | OP ---
PATIENT NAME: SAHARA KRAMER MEDICAL RECORD: [id number] :58 [place] [address] ADMISSION DATE: SURGEON: LAMAR NOEL MD DATE OF OPERATION: 11/20/2018 PROCEDURES: 1. PTCA stent left circumflex. 2. Intravascular ultrasound. 3. Left heart catheterization. 4. Selective coronary angiography. 5. Left ventriculogram. 6. MELENDREZ angiography. INDICATION: Angina and coronary artery disease. PROCEDURE PERFORMED: After informed consent was obtained and after detailed description of risks, benefits as well as alternative therapies, the patient elected to proceed with angiogram and angioplasty. FINDINGS: The left ventriculogram was performed in standard 30-degree GARCIA view, reveals good cardiac wall motion throughout all segments. Overall ejection fraction estimated 60%. SELECTIVE CORONARY ANGIOGRAPHY: 1. Left main showed no significant angiographic disease. 2. Left anterior descending is totally occluded mid vessel. 3. MELENDREZ to the LAD is widely patent. Distal LAD is widely patent. 4. Left circumflex has 65% to 70% stenosis in the mid vessel confirmed by intravascular ultrasound. 5. The right coronary has previously placed stents, these are widely patent with no significant restenosis. No disease elsewise throughout the RCA or its branches. BRAKE OPERATOR SHEET METAL STENT OF THE LEFT CIRCUMFLEX: The stent used was a 3.5 x 15-mm Integrity. Result was 0% residual stenosis. OVERALL IMPRESSION: Successful percutaneous transluminal coronary angioplasty stent of the left circumflex going from 70% initial stenosis to 0% residual. TRANSINT:[id number] Voice Confirmation ID: [id number] DOCUMENT ID: [id number] LAMAR NOEL MD at 0930 CC: [id number] DICTATION DATE: 11/20/18 1047 JUKEBOX ROUTEMAN: 11/20/18 1101 REG [facility] [address] [place] [address]
--- NOTE | 2018-11-21 10:42 | NUR ---
0945: L FOREARM SALINE LOCK DC'D 1000: DISCHARGE INSTRUCTIONS REVIEWED WITH PATIENT. 1045: DISCHARGED HOME. WALKED TO VEHICLE.
--- NOTE | 2018-11-24 11:18 | DS ---
PATIENT:SAHARA MONTILLA :58 MEDICAL RECORD: [id number] DISCHARGE SUMMARY ADMISSION DATE: 11/20/18 DISCHARGE DATE: 11/21/18 DATE OF SERVICE: 11/21/2018 DIAGNOSES: 1. Angina. 2. Coronary artery disease. 3. Percutaneous transluminal coronary angioplasty and stent of the left circumflex. 4. Hypertension. 5. Hyperlipidemia. HOSPITAL COURSE: Ms. Montilla presents with anginal symptomatology, found to have significant disease of circumflex, underwent PTCA and stent of the circumflex, had an acute closure, had to have repeat stenting of this, had an uneventful postop course after that, discharged home with the addition of Effient to her medical regimen. Follow up with [facility] in 1 month. TRANSINT:[id number] Voice Confirmation ID: [id number] DOCUMENT ID: [id number] LAMAR NOEL MD at 1118 CC: [id number] DICTATION DATE: 11/21/18 09 WRECKER OPERATOR: 11/22/18 0008 DEP CLI 11/21/[address] [address]
--- NOTE | 2018-11-24 11:18 | OP ---
PATIENT NAME: SAHARA KRAMER MEDICAL RECORD: [id number] :58 LOCATION:[facility] ADMISSION DATE: SURGEON: LAMAR NOEL MD DATE OF OPERATION: 11/20/2018 PROCEDURE: PTCA and stent of left circumflex. INDICATION: Acute closure after PTCA and stent of left circumflex. PROCEDURE IN DETAIL: After informed consent was obtained and after a detailed explanation of risks, benefits as well as alternative therapies, the patient elected to proceed with repeat cardiac intervention. FINDINGS: The left circumflex had an acute closure. This was addressed with a 3.5 x 12-mm Integrity as well as a 3.0 x 26-mm Integrity. Result was 0% residual stenosis. OVERALL IMPRESSION: Successful PTCA and stent for acute closure of the circumflex going from 100% initial stenosis to 0% residual. TRANSINT:[id number] Voice Confirmation ID: [id number] DOCUMENT ID: [id number] LAMAR NOEL MD at 1118 CC: [id number] DICTATION DATE: 11/21/18 0943 GLASS SETTER: 11/21/18 0955 DEP CLI 11/21/18 [place] [id number] [place] [address]
== END 2018-11-21 10:45 | disposition home or self-care (01) ==
LOC: D.CATH 08:14 → D.CVICU 12:03 → D.CATH 11-21 10:45
PROVIDERS: Internal Medicine Interventional Cardiology
DX: I25.119 Atherosclerotic heart disease of native coronary artery with unspecified angina pectoris (principal); Z95.1 Presence of aortocoronary bypass graft; I10 Essential (primary) hypertension; E78.5 Hyperlipidemia, unspecified; Z01.812 Encounter for preprocedural laboratory examination

== ENCOUNTER 2020-01-06 00:15 | Emergency (ER) | payer SELFPAY ==
[~2020-01-06] VITALS: Ht 167.6 cm; Wt 93.2 kg
[2020-01-06 00:25] VITALS: BP 102/54; Ht 167.6 cm; Wt 93.2 kg
[2020-01-06] MEDS ORDERED: LIPITOR20 MG PO (00:28)
[2020-01-06] MEDS ORDERED: PEPCID AC20 MG PO (01:43)
[2020-01-06] MEDS ORDERED: STERAPRED 5MG 65 M1 PO (01:43)
== END 2020-01-06 02:30 | disposition home or self-care (01) ==
LOC: D.ER 00:15
DX: T78.40XA Allergy, unspecified, initial encounter (principal); R60.9 Edema, unspecified; I10 Essential (primary) hypertension; Z95.1 Presence of aortocoronary bypass graft

== ENCOUNTER 2020-02-07 05:23 | Emergency (ER) | payer MEDICAID ==
[~2020-02-07] VITALS: Ht 167.6 cm; Wt 95.5 kg
[~2020-02-07 05:23] MED LIST changes: +LIPITOR20 MG PO; +PEPCID AC20 MG PO; +STERAPRED 5MG 65 M1 PO
[2020-02-07 05:24] VITALS: Ht 167.6 cm; Wt 95.5 kg
[2020-02-07] MEDS ORDERED: VALIUM5 MG PO (05:55)
[2020-02-07] MEDS ORDERED: MEDROL DOSE PACK4 MG PO (06:10)
[2020-02-07 07:05] VITALS: BP 133/63
== END 2020-02-07 07:06 | disposition home or self-care (01) ==
LOC: D.ER 05:23
DX: T78.3XXA Angioneurotic edema, initial encounter (principal)

== ENCOUNTER 2020-02-12 08:43 | Inpatient (IN) | payer MEDICAID ==
[~2020-02-12] VITALS: Ht 167.6 cm; Wt 95.5 kg
--- NOTE | ~2020-02-12 | HEMODYNAMI ---
PATIENT:SAHARA KRAMER MEDICAL RECORD: [id number] : 58 LOCATION[facility] [id number] ADMISSION DATE: 02/13/20 Generatedon:02/14/202012:24 Patient name: SAHARA KRAMER Patient #: [id number] SSN: E [id number] : 1960 Date of study: 02/14/2020 Page: Of Hemodynamic Procedure Report Patient Data Patient Demographics Procedure consent was obtained First Name: SAHARA Gender: Female Last Name: WILLIAMS : 1960 Patient #: [id number] Age: 59 year(s) Race: SSN: [id number] Additional ID: [id number] Contact details Address: [address] [place] [address] State: [place] City: [place] Zip code: [address] Past Medical History History of disease Date Diagnosis Comments CAD Allergies Allergen Reaction Date Comments Reported Other allergy 05/07/2018 See Chart Other allergy 02/14/2020 SULFA, HYDROCODONE, IBUPROFEN, ERYTHROMYCIN, TRAMADOL, HYDROMORPHONE, PLAVIX Admission Admission Data Admission Date: 02/13/2020 Admission Time: 14:50 Arrival Date: 02/14/2020 Arrival Time: 0:00 Admit Source: Other Insurance Payor: Private Room #: D.2121 health insurance Height (in.): 66 BSA: 2.04 (m2) Height (cm.): 167.64 BMI: 33.96 (kg/m2) Weight (lbs.): 210.43 Weight (kg.): 95.45 Lab Results Lab Result Date: 02/14/2020 Lab Result Time: 0:00 Biochemistry Name Units Result Min Max BUN mg/dl 12 --(-*--)-- 7 18 Creatinine mg/dl 0.7 --(*---)-- 0.6 1.3 eGFR ml/min 90 --(*---)-- 90 120 NONAFRICAN CBC Name Units Result Min Max Hemoglobin g/dl 14.3 --(*---)-- 13.5 17.5 Procedure Procedure Types Cath Procedure Diagnostic Procedure [facility] w/Coronaries w/Grafts Sedation Charges Moderate Sedation up to 15 minutes Procedure Description Procedure Date Procedure Date: 02/14/2020 Procedure Start Time: 12:10 Procedure End Time: 12:20 Procedure Staff Name Function Dominic Leigh MD Performing Physician Radha Perez [facility] Loyda Peralta RN Nurse Indication Angina Procedure Data Cath Procedure Fluoroscopy Diagnostic fluoroscopy Total fluoroscopy Time: 1.2 time: 1.2 min min Diagnostic fluoroscopy Total fluoroscopy dose: 218 dose: 218 mGy mGy Contrast Material Contrast Material Type Amount (ml) Isovue 300 37 Entry Location Entry Primary Successful Side Size Upsize Upsize Entry Closure Succes sful Closure Location (Fr) 1 (Fr) 2 (Fr) Remarks Device Remarks Femoral Right 5 Fr Exoseal artery Estimated blood loss: 5 ml Diagnostic catheters Device Type Used For End Catheter Placement MULTIPACK JL 4.0 5Fr Procedure catheter MULTIPACK 3DRC 5Fr Procedure catheter MULTIPACK Pigtail 5 Fr Procedure catheter Procedure Complications No complications Procedure Medications Medication Administration Route Dosage 0.9% NaCl I.V. 100 ml/hr Oxygen etCO2 Nasal cannula 2 l/min Lidocaine 2% added to field 20 Heparin Flush Bag added to field 2 bags (1000units/500ml NS) Versed I.V. 2 mg Fentanyl I.V. 50 mcg Versed I.V. 2 mg Fentanyl I.V. 50 mcg Hemodynamics Rest HGB: 14.3 (g/dl) Heart Rate: 59 (bpm) Pressure Samples Time Site Value (mmHg) Purpose Heart Use Rate(bpm) 12:15 LV 101/2,12 Snapshot 65 12:15 LV 101/0,0 Snapshot 65 Gradients Valve Time Site Site Mean SEP/DFP Peak To Heart Use 1 2 (mmHg) (sec/min) Peak Rate (mmHg) (bpm) Aortic 12:15 LV AO 49 Snapshots Pre Cath Intra NCS Post Cath Vital Signs Time Heart Resp SPO2 etCO2 NIBP (mmHg) Rhythm Pain Sedation Rate (ipm) (%) (mmHg) Status Level (bpm) 11:59:13 58 13 100 35.1 140/77(101) SB 0 (11) 10(A) , No pain 12:03:29 61 12 97 40.3 109/62(88) NSR 0 (11) 10(A) , No pain 12:07:43 63 14 97 40.3 113/65(84) NSR 0 (11) 10(A) , No pain 12:11:57 68 10 96 44 118/71(93) NSR 0 (11) 10(A) , No pain 12:16:07 69 10 98 40.3 124/76(96) NSR 0 (11) 10(A) , No pain 12:20:19 66 9 94 43.3 128/79(100) NSR 0 (11) 10(A) , No pain Medications Time Medication Route Dose Verified Delivered Reason Notes Eff ectiveness by by 11:58:03 0.9% NaCl I.V. 100 Dominic Loyda used for ml/hr Lu Fabian procedure MD ALMEIDA 11:58:09 Oxygen etCO2 2 Dominic Loyda used for Nasal l/min Lu Fabian procedure cannula MD ALMEIDA 11:58:14 Lidocaine 2% added 20ml Dominic Alfaro for local to vial [facility] anesthetic field MD HINES 11:58:18 Heparin Flush added 2 Dominic Dominic used for Bag to bags [facility] procedure (1000units/500ml field MD HINES NS) 12:06:09 Versed I.V. 2 mg Dominic Loyda for Lu Fabian sedation MD ALMEIDA 12:06:20 Fentanyl I.V. 50 Dominic Loyda for mcg Lu Fabian sedation MD ALMEIDA 12:11:52 Versed I.V. 2 mg Dominic Loyda for Lu Fabian sedation MD ALMEIDA 12:11:55 Fentanyl I.V. 50 Dominic Loyda for mcg Lu Fabian sedation MD ALMEIDAfield artillery officer Log Time Note 11:41:05 Arrival Date: 02/14/2020 12:00:00 AM 11:41:08 Admit Source: Other 11:41:12 Insurance Payor : Private health insurance 11:41:36 Patient Height : 66 inches 11:41:42 Patient Weight : 210.43 lbs 11:42:29 Lab Result : eGFR NONAFRICAN 90 ml/min 11:42:29 Lab Result : Hemoglobin 14.3 g/dl 11:42:29 Lab Result : BUN 12 mg/dl 11:42:29 Lab Result : Creatinine 0.7 mg/dl 11:42:59 Procedure Status Urgent Heart Cath (IP). 11:43:01 Radha Perez RT(R) sent for patient. Start room use. 11:43:03 Time tracking: Regular hours (M-F 7:00 - 5:00) 11:43:07 Plan of Care:Hemodynamics will remain stable., Cardiac rhythm will remain stable., Comfort level will be maintained., Respiratory function will remain adequate., Patient/ family verbilizes understanding of procedure., Procedure tolerated without complication., Recovers from procedure without complications.. 11:47:51 H&P Date Dictated: 02/14/2020 ER History on chart.. 11:51:14 Indication : Angina 11:51:26 Patient received from Med II to CCL 1 Alert and oriented. Tansferred to table in Supine position. 11:51:28 Signed procedure consent form obtained from patient. 11:51:29 Correct patient and procedure confirmed by team. 11:51:29 Warm blankets applied, and terry hugger turned on for patient comfort. 11:51:30 ECG and BP/O2 sat monitors applied to patient. 11:52:21 Patient allergic to Other allergySULFA, HYDROCODONE, IBUPROFEN, ERYTHROMYCIN, TRAMADOL, HYDROMORPHONE, PLAVIX 11:57:54 Vital chart was started 11:58:03 0.9% NaCl 100 ml/hr I.V. was administered by Loyda Peralta RN; used for procedure; Verbal order read back and verified. 11:58:08 Baseline sample Acquired. 11:58:09 Oxygen 2 l/min etCO2 Nasal cannula was administered by Loyda Peralta RN; used for procedure; Verbal order read back and verified. 11:58:11 Rhythm: sinus bradycardia 11:58:12 Full Disclosure recording started 11:58:13 Pre-op teaching completed and patient verbalized understanding. 11:58:13 Pre-procedure instructions explained to patient. 11:58:14 Lidocaine 2% 20ml vial added to field was administered by Dominic Leigh MD; for local anesthetic; Verbal order read back and verified. 11:58:18 Family unavailable. 11:58:18 Heparin Flush Bag (1000units/500ml NS) 2 bags added to field was administered by Dominic Leigh MD; used for procedure; Verbal order read back and verified. 11:59:14 Patient NPO since Midnight. 11:59:17 Is the patient allergic to Iodine/contrast media? No. 11:59:18 Is patient on blood thinner?No 11:59:19 Patient diabetic? No. 11:59:22 Patient not . Patient is over age 55. 11:59:25 Previous problem with sedation/anesthesia? No ? 11:59:26 Snore? Yes 11:59:27 Sleep apnea? No 11:59:28 Opens mouth fully? Yes 11:59:28 Deviated septum? No 11:59:29 Sticks out tongue? Yes 11:59:30 Airway obstruction? No \ 11:59:32 Dentures? No ? 11:59:34 Pre procedure: right dorsailis pedis pulse 1+ Palpable, but thready & weak; easily obliterated 11:59:39 Patient pain scale 0/10 ?. 11:59:43 IV patent on arrival in left forearm with 0.9% NaCl at KVO. 11:59:46 Lab results completed and on chart. 11:59:51 Right groin area was prepped with chlora-prep and draped in sterile fashion 11:59:52 Sharps counted by scrub and verified by R.N. 11:59:52 Alarms reviewed by R. N. 12:01:49 Stress Test: no; N/A ? 12:02:41 Use device set Femoral Dx 12:02:42 Bag Decanter () opened to sterile field. 12:02:42 ACIST Syringe (15883) opened to sterile field. 12:02:43 ACIST Hand Control (90899) opened to sterile field. 12:02:44 ACIST Manifold (15640) opened to sterile field. 12:02:45 Tegaderm 4 x 4 (1626W) opened to sterile field. 12:02:46 Medline Cath Pack ([id number]) opened to sterile field. 12:02:47 DIAGNOSTIC Multipack 5Fr catheter set (UN5829) opened to sterile field. 12:02:50 EMERALD Guide Wire (502-676) opened to sterile field. 12:02:50 SHEATH 5FR Liscomb (VTA090) opened to sterile field. 12:05:33 Final Timeout: patient, procedure, and site verified with staff and physician. All members of the team are in agreement. 12:05:33 --------ALL STOP TIME OUT------ 12:05:34 Right groin site verified by team. 12:05:37 Fire Safety Assessment: A--An alcohol-based skin anteseptic being used preoperatively., C--Open oxygen or nitrous oxide is being used., D--An ESU, laser, or fiber-optic light is being used. 12:05:39 Physical assessment completed. ASA score P 2 - A patient with mild systemic disease as per Dominic Leigh MD. 12:05:40 1) 90+ Normal kidney functon but urine findings or structural abnormalities or genetic trait point to kidney disease. 12:05:43 Maximum allowable contrast dose (3.7 X eGFR X 0.75)250 ml. 12:05:46 Sedation plan: IV Moderate Sedation Medication:Versed, Fentanyl 12:06:09 Versed 2 mg I.V. was administered by Loyda Peralta RN; for sedation; Verbal order read back and verified. 12:06:20 Fentanyl 50 mcg I.V. was administered by Loyda Peralta RN; for sedation; Verbal order read back and verified. 12:10:02 Zero performed for pressure channel P1 12:10:07 Procedure started. 12:10:18 Local anesthetic to right femoral artery with Lidocaine 2% by Dominic Leigh MD.INITIAL ACCESS ONLY 12:11:18 A 5 Fr sheath was inserted into the Right Femoral artery 12:11:33 A MULTIPACK JL 4.0 5Fr catheter was advanced over the wire and used for Procedure. 12:11:52 Versed 2 mg I.V. was administered by Loyda Peralta RN; for sedation; Verbal order read back and verified. 12:11:55 Fentanyl 50 mcg I.V. was administered by Loyda Peralta RN; for sedation; Verbal order read back and verified. 12:12:37 LCA angiography performed. 12:12:39 Catheter removed. 12:13:15 A MULTIPACK 3DRC 5Fr catheter was advanced over the wire and used for Procedure. 12:13:41 RCA angiography performed. 12:14:07 MELENDREZ to LAD angiography performed. 12:14:10 Catheter removed. 12:14:15 A MULTIPACK Pigtail 5 Fr catheter was advanced over the wire and used for Procedure. 12:14:33 LV gram done using GARCIA 12:14:36 Injector settings: Ml/sec: 10, Volume: 20, 12:15:29 LV hemodynamics recorded. 12:15:35 EF : 55 % 12:15:37 Catheter removed. 12:15:53 ACCDominant side:Left 12:15:57 EXOSEAL 5Fr (EX500) opened to sterile field. 12:16:26 Sheath removed intact; hemostasis achieved with Exoseal to the Right Femoral artery. 12:16:30 Procedure ended.(Physican Out) 12:16:38 Fluoroscopy time 01.20 minutes. 12:18:44 Fluoroscopy dose: 218 mGy 12:18:44 Flurop Dose total: 218 12:18:52 Dose Area Product 14000 mGy/cm. 12:19:01 Contrast amount:Isovue 300 37ml. 12:19:03 Maximum allowable dose exceeded? No. 12:19:04 Sharps counted by scrub and verified by R.N. 12:19:07 Post-op/insertion site Right Femoral artery dressed using a 4 x 4 and Tegaderm. 12:19:11 Post-procedure physical assessment completed. ASA score P 2 - A patient with mild systemic disease as per Dominic Leigh MD. 12:19:14 Post procedure rhythm: sinus rhythm 12:19:17 Estimated blood loss: 5 ml 12:19:18 Patient needs reinforcement of post procedure teaching. 12:19:18 Post procedure instruction explained to patient.Patient verbalizes understanding. 12:19:55 Procedure type changed to Cath procedure, Diagnostic procedure, LHC, LHC w/Coronaries w/Grafts, Sedation Charges, Moderate Sedation up to 15 minutes 12:20:13 Procedure and supply charges have been captured, reviewed, submitted and are correct. 12:20:20 Procedure Complication : No complications 12:20:22 Vital chart was stopped 12:20:23 [facility] Findings: mild to moderate CAD (<70%) 12:20:24 Operative report dictated upon procedure completion. 12:20:25 See physician's report for complete and final results. 12:20:26 Report given to [facility]. 12:20:30 Patient transfered to [facility] with Bed. 12:20:34 Full Disclosure recording stopped 12:20:34 Procedure ended. 12:20:39 End room use (Document Last) Device Usage Item Name Manufacture Quantity Catalog Hospital Part Current Minimal L ot# / Number Charge Number Stock Stock Serial# Code ACIST Acist 1 05466 895531 985591 147453 20 Syringe Medical (57597) Systems Inc Bag Microtek 1 357772 51329 524021 5 Decanter Medical Inc. () ACIST Hand Acist 1 67948 192434 378487 358050 5 Control Medical (01973) Systems Inc ACIST Acist 1 07489 326487 910594 342824 5 Manifold Medical (38865) Systems Inc Tegaderm 4 3M 1 1626W 469083 661148 208593 5 x 4 (1626W) Medline Medline 1 [id number] 690356 47593 455855 5 Cath Pack ([id number]) DIAGNOSTIC Cardinal 1 DZ4437 138347 16566 855576 30 Multipack Health 5Fr catheter set (TQ5203) SHEATH 5FR Terumo 1 OLL462 621141 741530 007231 5 Liscomb (PHO478) EMERALD Cardinal 1 502-455 642536 575484 419655 5 Guide Wire Health (502-455) MULTIPACK Cardinal 1 277970 5 JL 4.0 5Fr Health catheter MULTIPACK Cardinal 1 205227 5 3DRC 5Fr Health catheter MULTIPACK Cardinal 1 646053 5 Pigtail 5 Health Fr catheter EXOSEAL 5Fr Cardinal 1 EX500 853875 936347 381449 10 (EX500) Health Signature Audit [place] Stage Time Signature Unsigned Intra-Procedure 02/14/2020 Hanna Baker 12:22:00 PM RT(R) RT(R) 02/14/2020 12:23:34 PM Intra-Procedure 02/14/2020 Hanna Olivia 12:23:44 PM RT(R) Intra-Procedure 02/14/2020 Loyda Peralta 12:23:59 PM RN Intra-Procedure 02/14/2020 Dominic Grullon 12:24:27 PM Black [place] [place] [address]
--- NOTE | ~2020-02-12 | EC ---
PATIENT:SAHARA KRAMER DATE OF SERVICE: 02/13/20 SEX: F MEDICAL RECORD: [id number] DATE OF : 58 LOCATION:D.M2 D.212 AGE OF PATIENT: 59 ADMISSION DATE: 02/13/20 REFERRING PHYSICIAN: INTERPRETING PHYSICIAN: HARRIS CARTER MD ECHOCARDIOGRAM REPORT ECHO CHARGES 4 ECHO COMPLETE Date: 02/13/20 CLINICAL DIAGNOSIS: DYSPNEA ECHOCARDIOGRAPHIC MEASUREMENTS (adult normal given) AC root (d.<3.7cm) 2.8 cm LV Septum d (<1.2 cm> 0.8 cm Valve Excursion 1.8 cm LV Septum (systole) 1.5 cm Left Atria (s.<4.0cm> 4.2 cm LVPW d(<1.2cm) 0.7 cm RV (d.<2.3cm) 2.7 cm LVPW (sytole) 1.0 cm LV diastole(<5.6CM) 5.6 cm MV E-F(>70mm/sec) cm LV systole 3.8 cm LVOT Diameter 1.7 cm MV exc.(>10mm) cm Est.ejection fraction (50-75%) % DOPPLER: LVIT cm/sec A 87 cm/sec E 62 cm/sec LA cm/sec RVSP 29.0 mmHg LVOT 87 cm/sec AOP1/2T m/s Asc. Ao 119 cm/sec RVOT 52 cm/sec RA cm/sec PA 79 cm/sec AV Gradient Peak 5.7 mmHg AV Mean 3.1 mmHg AV Area 1.8 cm MV Gradient Peak 2.7 mmHg MV Mean 1.1 mmHg MV Area cm COMMENTS: Elementary Vocal Music Teacher: April [facility] Applications Analyst: 3 Dr. Don TAPE# PACS Pericardial Effusion N DATE OF SERVICE: Adequate 2D, color flow imaging, spectral Doppler, and M-Mode. No LVH. LV internal dimensions are normal. Wall motion is normal. EF is greater than or equal to 55%. Aortic valve is tricuspid. No evidence of stenosis by Doppler interrogation. Left atrium is mildly dilated at 4.2 cm. Mitral valve shows no prolapse. Trace MR. Right-sided chambers are grossly normal. Trace TR. ECHOCARDIOGRAM REPORT [id number] SAHARA KRAMER TRANSINT:[id number] Voice Confirmation ID: [id number] DOCUMENT ID: [id number] HARRIS CARTER MD CC: [id number] DICTATION DATE: 02/14/20 0854 MANAGER RETAIL STORE: 02/14/20 1433 ADM IN [place] [id number] [place] [id number]
--- NOTE | ~2020-02-12 | OP ---
PATIENT NAME: SAHARA KRAMER MEDICAL RECORD: [id number] :58 LOCATION:D.M2 D.2121 ADMISSION DATE:02/13/20 SURGEON: HARRIS CARTER MD DATE OF OPERATION: 02/14/2020 PROCEDURE: Left heart catheterization, selective coronary angiography, right femoral artery approach. CATHETERS: A 5-Malawian sheath, 5/4 left and right Randy, 5/4 pig. The procedure was well tolerated. The patient returned to the garcia, sheath removed. ExoSeal device was placed. FINDINGS: Left ventriculography in 30-degree GARCIA view: Normal wall motion, normal systolic function. CORONARY ANATOMY: LEFT MAIN: Left main is free of disease. LAD: Fills to the proximal third then is totally occluded. CIRCUMFLEX: Circumflex area of previous stent is widely patent with no evidence of restenosis. No progression of [place] disease. RIGHT CORONARY ARTERY: Again, widely patent stents. No progression of chevak disease. MELENDREZ to LAD: This is widely patent with excellent runoff distally. No evidence of post-anastomotic stenosis. IMPRESSION: LV systolic function, patent stent in the circumflex and right patent MELENDREZ to LAD. TRANSINT:[id number] Voice Confirmation ID: [id number] DOCUMENT ID: [id number] HARRIS CARTER MD CC: [id number] DICTATION DATE: 02/14/20 1237 LOOSE HAND PACKER: 02/14/20 1722 DIS IN 02/14/20 [facility] [address] [place] [address]
[~2020-02-12 08:43] MED LIST changes: +MEDROL DOSE PACK4 MG PO; +VALIUM5 MG PO
[2020-02-12 09:15] LABS: BASOPHILS 0.3 % (0-2); EOSINOPHILS 1.6 % (0-7); HEMATOCRIT 45.3 % (36.0-48.0); HEMOGLOBIN 14.7 g/dL (12-16); IMMATURE GRANULOCYTES 0.3 % (0-5); LYMPHOCYTES 39.9 % (15-50); MCH 28.2 pg (26.0-34.0); MCHC 32.5 g/dL (31.0-37.0); MCV 86.9 fL (80.0-100.0); MEAN PLATELET VOLUME 10.3 fL (7.4-10.4); MONOCYTES 7.9 % (2-11); PLATELET COUNT 356 10x3/uL (130-400); RBC 5.21 10x6/uL (4.00-5.40); RDW 14.4 % (11.5-14.5); WBC 7.5 10x3/uL (4.8-10.8)
[2020-02-12 09:27] VITALS: BP 157/85
--- NOTE | 2020-02-12 09:27 | NUR ---
PT REPORTS SYMPTOMS HAVE RESOLVED AT THIS TIME. PAIN 0/10, AND PT REPORTS SHE CAN BREATH MUCH BETTER.
[2020-02-12 09:28] LABS: APTT 32.1 SECONDS (22.8-39.4); CALC OSMOLALITY 276 mosm/kg (275-300); CALCIUM 9.4 mg/dL (8.5-10.1); CARBON DIOXIDE 26.5 mmol/L (21.0-32.0); CHLORIDE - SERUM 103 mmol/L (98-107); CREATININE - SERUM 0.9 mg/dL (0.6-1.3); GLUCOSE 106 mg/dL (74-106); INR 0.92 (0.85-1.17); POTASSIUM - SERUM 3.9 mmol/L (3.5-5.1); PROTIME 12.3 SECONDS (11.6-15.0); SODIUM 138 mmol/L (136-145); UREA NITROGEN 15 mg/dL (7-18); eGFR NON AFRICAN AMERICAN 68 mL/min (90-120)
[2020-02-12 09:43] LABS: ALBUMIN 3.9 g/dL (3.4-5.0); ALKALINE PHOSPHATASE 120 U/L (30-120); ALT (SGPT) 30 U/L (10-68); BILIRUBIN - TOTAL 0.49 mg/dL (0.2-1.3); CKMB 1.5 U/L (0.0-3.6); CREATINE KINASE 99 UL (21-215); PROTEIN - SERUM 7.5 g/dL (6.4-8.2); TROPONIN-I < 0.017 ng/mL (0.000-0.060)
[2020-02-12 11:21] VITALS: BP 140/62
--- NOTE | 2020-02-12 12:26 | NUR ---
RECEIVED PT TO ROOM 2120 VIA WHEELCHAIR, PT A/O X4, RESP EVEN AND NONLABORED ON RA. ORIENTED PT TO ROOM AND CALL LIGHT. WILL ASSESS PT AND START PLAN OF CARE.
[2020-02-12 12:29] LABS: CREATINE KINASE 81 UL (21-215)
[2020-02-12 12:30] LABS: CKMB 1.4 U/L (0.0-3.6)
[2020-02-12] MEDS ORDERED: BUPROPION HCL150 M1 PO (12:36)
[2020-02-12] MEDS ORDERED: BENADRYL25 MG PO (12:37)
[2020-02-12] MEDS ORDERED: CLARITIN 10 MG10 MG PO (12:38)
[2020-02-12 13:02] VITALS: BP 143/66; Ht 167.6 cm; Wt 95.5 kg
[2020-02-12 13:12] VITALS: BP 143/66
[2020-02-12] MEDS ORDERED: HYDROCHLOROTH12.5 M1 PO (14:07)
[2020-02-12 17:23] LABS: CKMB 1.2 U/L (0.0-3.6); CREATINE KINASE 71 UL (21-215)
[2020-02-12 17:31] LABS: TROPONIN-I < 0.017 ng/mL (0.000-0.060)
[2020-02-12 17:49] LABS: MAGNESIUM - SERUM 1.9 mg/dL (1.8-2.4); THYROID STIMULATING HORMONE 0.91 uIU/mL (0.36-3.74)
--- NOTE | 2020-02-12 18:36 | NUR ---
EKG DONE AND PLACE ON CHART. SB WITH RATE OF 55.
--- NOTE | 2020-02-12 19:15 | NUR ---
RECEIVED REPORT, WILL ASSUME CARE OF PT,DENIES ANY NEEDS AT THIS TIME, BED IS LOW, SRX2, CALL LIGHT IN REACH, WILL CONTINUE PLAN OF CARE
[2020-02-12 20:00] VITALS: BP 148/65
[2020-02-12 23:34] LABS: CREATINE KINASE 68 UL (21-215); TROPONIN-I < 0.017 ng/mL (0.000-0.060)
[2020-02-13] VITALS: BP 139/76
[2020-02-13 04:00] VITALS: BP 133/70
[2020-02-13 05:38] LABS: BASOPHILS 0.3 % (0-2); EOSINOPHILS 1.9 % (0-7); HEMATOCRIT 43.3 % (36.0-48.0); HEMOGLOBIN 13.7 g/dL (12-16); IMMATURE GRANULOCYTES 0.3 % (0-5); MCH 27.9 pg (26.0-34.0); MCHC 31.6 g/dL (31.0-37.0); MCV 88.2 fL (80.0-100.0); MEAN PLATELET VOLUME 10.4 fL (7.4-10.4); MONOCYTES 10.7 % (2-11); NEUTROPHILS 50.8 % (40-80); PLATELET COUNT 313 10x3/uL (130-400); RBC 4.91 10x6/uL (4.00-5.40); RDW 14.7 % (11.5-14.5); WBC 5.7 10x3/uL (4.8-10.8)
[2020-02-13 06:14] LABS: ALBUMIN 3.3 g/dL (3.4-5.0); ALKALINE PHOSPHATASE 101 U/L (30-120); ALT (SGPT) 23 U/L (10-68); BILIRUBIN - TOTAL 0.58 mg/dL (0.2-1.3); CALCIUM 8.6 mg/dL (8.5-10.1); CARBON DIOXIDE 27.4 mmol/L (21.0-32.0); CHLORIDE - SERUM 107 mmol/L (98-107); CREATININE - SERUM 0.7 mg/dL (0.6-1.3); GLUCOSE 106 mg/dL (74-106); MAGNESIUM - SERUM 2.2 mg/dL (1.8-2.4); POTASSIUM - SERUM 3.6 mmol/L (3.5-5.1); PROTEIN - SERUM 6.8 g/dL (6.4-8.2); SODIUM 140 mmol/L (136-145); eGFR NON AFRICAN AMERICAN 90 mL/min (90-120)
[2020-02-13 06:15] LABS: CALC OSMOLALITY 277 mosm/kg (275-300); UREA NITROGEN 11 mg/dL (7-18)
--- NOTE | 2020-02-13 07:00 | NUR ---
RECEIVED REPORT. ASSUMED CARE OF PATIENT. PATIENT RESTING IN BED WITH EYES OPEN. PATIENT AWARE OF HER NPO STATUS. WHITE BOARD UPDATED, BEDSIDE SHIFT REPORT COMPLETED. PATIENT VOICED HER CONCERNS ABOUT HER CARDIOLOGY CONSULT THIS AM. PATIENT IS SB ON TELEMETRY, [id number].
[2020-02-13 08:45] VITALS: BP 155/71
--- NOTE | 2020-02-13 09:07 | NUR ---
DR. ALTAMIRANO AT BEDSIDE FOR ROUNDS.
--- NOTE | 2020-02-13 09:52 | NUR ---
SHOWER COMPLETE. NO DISTRESS.
[2020-02-13 12:16] VITALS: BP 167/73
--- NOTE | 2020-02-13 13:07 | NUR ---
TECH AT BEDSIDE FOR ECHO.
[2020-02-13 14:00] VITALS: BP 137/72
--- NOTE | 2020-02-13 15:30 | NUR ---
PATIENT OUT OF ROOM AMBULATING THE HALLWAY AT THIS TIME. NO DISTRESS.
--- NOTE | 2020-02-13 18:40 | NUR ---
@ 1815 PATIENT ON PHONE WITH HER DAUGHTER AND COMES OUT INTO THE HALLWAY FOR NURSING TO WITNESS WHAT SHE IS TRYING TO EXPLAIN TO THE PHYSICIANS THAT HAPPENING TO HER. PATIENT IS NOTED TO BE DIAPHORETIC, COMPLAINING OF BEING HOT, PATIENT WITH CLENCHED FISTS IN AIR AND STATES SHE FEELS LIKE SHE IS SHAKING ALL OVER. O2 SAT CHECKED WHILE PATIENT STANDING, 98% ON ROOM AIR, PATIENT TRYING TO EXPLAIN WHAT SHE FEELS AND APPEARS TO THIS KIER HAND THAT SHE IS HAVING SEVERE ANXIETY. THIS KIER HAND ASKS PATIENT TO COME BACK INTO HER ROOM TO SIT DOWN. THIS KIER HAND CHECKED PATIENT ON TELEMETRY AND NOTED SR OF 79-86, THIS PATIENT HAS BEEN SB MOST OF THIS SHIFT. OBSERVED PATIENT ON TELEMETRY FOR A FEW MINUTES. PATIENT NOW (1829) SITTING IN BED AND STATES SHE FEELS FINE, NO FURTHER DIAPHORESIS, NO FEELING SHAKEY OR ANYTHING. PATIENT IS SR 62 ON TELEMETRY AT THIS TIME. CALL LIGHT WITHIN REACH.
--- NOTE | 2020-02-13 19:30 | NUR ---
RECEIVED REPORT, WILL ASSUME CARE OF PT, DENIES ANY NEEDS AT THIS TIME, BED IS LOW, SRX2, CALL LIGHT IN REACH, WILL CONTINUE PLAN OF CARE
[2020-02-13 20:00] VITALS: BP 129/72
[2020-02-14] VITALS: BP 135/74
--- NOTE | 2020-02-14 02:03 | NUR ---
I have reviewed this patient and I concur with the Shift Assessment completed by the Licensed Practical Nurse today this shift.
[2020-02-14 04:00] VITALS: BP 138/80
[2020-02-14 05:07] LABS: BASOPHILS 0.4 % (0-2); EOSINOPHILS 1.1 % (0-7); HEMATOCRIT 45.1 % (36.0-48.0); HEMOGLOBIN 14.3 g/dL (12-16); IMMATURE GRANULOCYTES 0.3 % (0-5); LYMPHOCYTES 38.8 % (15-50); MCHC 31.7 g/dL (31.0-37.0); MCV 88.4 fL (80.0-100.0); MEAN PLATELET VOLUME 10.6 fL (7.4-10.4); MONOCYTES 8.4 % (2-11); PLATELET COUNT 358 10x3/uL (130-400); RDW 14.3 % (11.5-14.5)
[2020-02-14 05:39] LABS: ALBUMIN 3.8 g/dL (3.4-5.0); ALKALINE PHOSPHATASE 109 U/L (30-120); ALT (SGPT) 29 U/L (10-68); BILIRUBIN - TOTAL 0.72 mg/dL (0.2-1.3); CALC OSMOLALITY 277 mosm/kg (275-300); CARBON DIOXIDE 27.8 mmol/L (21.0-32.0); CHLORIDE - SERUM 103 mmol/L (98-107); CREATININE - SERUM 0.7 mg/dL (0.6-1.3); GLUCOSE 98 mg/dL (74-106); MAGNESIUM - SERUM 2.1 mg/dL (1.8-2.4); POTASSIUM - SERUM 3.4 mmol/L (3.5-5.1); PROTEIN - SERUM 7.4 g/dL (6.4-8.2); SODIUM 139 mmol/L (136-145); UREA NITROGEN 12 mg/dL (7-18); eGFR NON AFRICAN AMERICAN 90 mL/min (90-120)
--- NOTE | 2020-02-14 08:58 | CN ---
PATIENT NAME:SAHARA KRAMER MEDICAL RECORD: [id number] : 58 LOCATION:D. D.2121 ADMIT DATE: 02/13/20 ACCOUNT: [id number] CONSULTING PHYSICIAN: HARRIS CARTER MD REFERRING PHYSICIAN: RICARDO LOPEZ MD DATE OF CONSULTATION: 02/13/2020 HISTORY OF PRESENT ILLNESS: A 59-year-old female with known history of coronary artery disease, status post coronary artery bypass grafting, subsequent intervention to circumflex via Dr. Minor, admitted with progressive over the past month or so with acute coronary syndrome. Symptomatology began over the past month or so. Initially, she was out working in the garden and felt chest tightness and pressure radiating to throat, reminiscent of her previous angina. This has been ongoing for the past again 4-6 weeks, progressing to rest symptomology with a choking sensation on day of admission. We are asked to see her concerning her cardiovascular status. PAST MEDICAL HISTORY: Includes: 1. History of coronary artery disease, status post coronary artery bypass grafting, subsequent intervention. 2. Hypertension. 3. Hyperlipidemia. MEDICATIONS: Include HCTZ 12.5 mg p.o. daily, Valium 5 mg p.o. b.i.d., Wellbutrin 150 p.o. b.i.d., Claritin 10 mg p.o. daily, Benadryl 25 mg p.o. at bedtime. ALLERGIES: INCLUDE SULFA, HYDROCODONE, IBUPROFEN, ERYTHROMYCIN, TRAMADOL, HYDROMORPHONE, PLAVIX. SOCIAL HISTORY: Previous smoking, quit. Uses occasional recreational marijuana. Easily takes care of her ADLs, in fact is able to work outside. REVIEW OF SYSTEMS: The patient reports easy bruising but reports no swollen glands. The patient reports no fever, no night sweats, no significant weight gain, no significant weight loss. No significant exercise tolerance. The patient reports no dry eyes, no irritation, no vision change. Patient reports no difficulty hearing and no ear pain. Patient reports no frequent nose bleeds or nose and sinus problems. Patient reports on arm pain on exertion. No shortness of breath while lying down. No history of heart murmur. Patient reports no cough, no wheezing or coughing up blood. Patient reports no abdominal pain, no vomiting. Normal appetite. No diarrhea and not vomiting blood. No nausea and no constipation. Patient reports no incontinence. No difficulty urinating. No hematuria. No increased frequency. Patient reports no muscle aches. No weakness, no arthralgias, no back pain. No swelling of the extremities. Patient reports no abnormal mole, no jaundice, no rashes. Reports no loss of consciousness. No weakness and no numbness. No seizures, dizziness, or headaches. The patient reports no depression, no sleep disturbance, feeling safe in a relationship and no alcohol abuse. Patient reports on fatigue. Reports no runny nose or sinus pressure. No itching, no hives, and no frequent sneezing. PHYSICAL EXAMINATION: GENERAL: Well-developed, well-nourished, in no acute distress, appears stated CONSULT REPORT [id number] SAHARA KRAMER. VITAL SIGNS: Blood pressure 155/71, pulse 65 and regular. HEENT: Normocephalic, atraumatic. NECK: No bruits noted. HEART: Regular, II/ systolic ejection murmur. LUNGS: Good air excursion. ABDOMEN: Soft, nontender. EXTREMITIES: Pulses well preserved, 2+. There is no edema. NEUROLOGIC: Grossly intact. DIAGNOSTIC DATA: EKG shows nonspecific ST-T changes inferolaterally. IMPRESSION: Acute coronary sinus syndrome and now class III-IV angina. PLAN: For angiography, intervention based on above. TRANSINT:[id number] Voice Confirmation ID: [id number] DOCUMENT ID: [id number] HARRIS CARTER MD at 0858 CC: [id number] DICTATION DATE: 02/13/20940 PATROL JUDGE: 02/13/20 1330 ADM IN [place] [id number] [place] [address]
[2020-02-14 09:16] VITALS: BP 168/95
--- NOTE | 2020-02-14 09:56 | NUR ---
CONSENTS SIGNED BY PT AND PLACED ON CHART. ALSO GAVE AM MEDS WITH SIP OF WATER AND WENT OVER PLAN OF CARE WITH PT'S DAUGHTER. PT A/O X4, DENIES ANY PAIN AT THIS TIME. LT WRIST IV SL. PT DENIES ANY NEEDS AT THIS TIME. CALL LIGHT IN REACH, NAD NOTED, WILL CONTINUE TO PLAN OF CARE.
--- NOTE | 2020-02-14 10:47 | NUR ---
PRE-OP MEDS GIVEN AT THIS TIME. ALSO GAVE 4MG OF ZOFRAN FOR NAUSEA. PT DENIES ANY OTHER NEEDS AT THIS TIME. CALL LIGHT IN REACH, NAD NOTED, WILL CONTINUE TO MONITOR.
--- NOTE | 2020-02-14 11:47 | NUR ---
PT TO FINANCIAL SERVICES EDUCATION CONSULTANT.
[2020-02-14] MEDS ORDERED: CARAFATE1 G PO (12:46)
[2020-02-14] MEDS ORDERED: PROTONIX40 MG PO (12:46)
--- NOTE | 2020-02-14 15:21 | NUR ---
PROVIDED VERBAL AND WRITTEN DISCHARGE TEACHING TO PT, WHO VERBALIZED UNDERSTANDING REGARDING TEACHING. BEDREST IS DONE. RT GROIN DRESSING CDI, NO S/S OF BLEEDING OR HEMATOMA. PT WILL NOTIFY WHEN RIDE IS HERE AND READY FOR WHEELCHAIR.
--- NOTE | 2020-02-14 15:53 | NUR ---
PT LEFT UNIT VIA WHEELCHAIR, WITH ALL BELONGIGNS.NAD NTOED.
== END 2020-02-14 15:47 | disposition home or self-care (01) | DRG 287 ==
LOC: D.ER 08:43 → OBSVTIME 10:54 → D.M2 10:54
PROVIDERS: Family Medicine; Internal Medicine Interventional Cardiology; ADMIT Family Medicine; ATTEND Family Medicine
PROC: B2151ZZ Fluoroscopy of Left Heart using Low Osmolar Contrast (ICD-10-PCS; 2020-02-14)
PROC: 4A023N7 Measurement of Cardiac Sampling and Pressure, Left Heart, Percutaneous Approach (ICD-10-PCS; 2020-02-14)
PROC: B2111ZZ Fluoroscopy of Multiple Coronary Arteries using Low Osmolar Contrast (ICD-10-PCS; principal; 2020-02-14 11:45)
DX: I25.110 Atherosclerotic heart disease of native coronary artery with unstable angina pectoris (principal); I10 Essential (primary) hypertension; E78.5 Hyperlipidemia, unspecified; G40.909 Epilepsy, unspecified, not intractable, without status epilepticus; F41.8 Other specified anxiety disorders; F12.90 Cannabis use, unspecified, uncomplicated; E87.6 Hypokalemia; Z87.891 Personal history of nicotine dependence

== ENCOUNTER 2020-06-15 00:19 | Emergency (ER) | payer MEDICAID ==
[~2020-06-15] VITALS: Ht 167.6 cm; Wt 86.4 kg
[~2020-06-15 00:19] MED LIST changes: +BENADRYL25 MG PO; +BUPROPION HCL150 M1 PO; +CARAFATE1 G PO; +CLARITIN 10 MG10 MG PO; +PROTONIX40 MG PO
[2020-06-15] MEDS ORDERED: STERAPRED DS 1010 MG PO (00:31)
[2020-06-15] MEDS ORDERED: PEPCID40 MG PO (00:31)
[2020-06-15 01:11] VITALS: Ht 167.6 cm; Wt 86.4 kg
[2020-06-15 03:45] VITALS: BP 146/52
== END 2020-06-15 03:52 | disposition home or self-care (01) ==
LOC: D.ER 00:19
DX: T78.3XXA Angioneurotic edema, initial encounter (principal); Z95.1 Presence of aortocoronary bypass graft; E78.5 Hyperlipidemia, unspecified